=== PATIENT | male | born 1955 | race Caucasian/White ===

== ENCOUNTER 2017-10-15 13:59 | Inpatient (IN) | payer SELFPAY ==
[2017-10-15 15:23] LABS: #Basophils 0.1 thou/uL (0.0-0.2); #Eosinphils 0.6 thou/uL (0.0-0.7); #Lymphocytes 3.5 thou/uL (1.20-3.40); #Monocytes 1.2 thou/uL (0.11-0.59); %Basophils 1.3 % (0.0-1.0); %Eosinophils 6.6 % (0.0-10.0); %Lymphocytes 36.8 % (21.0-51.0); %Monocytes 12.8 % (0.0-10.0); %Neutrophils 42.5 % (42.0-75.0); Hemoglobin 16.3 g/dL (14.0-18.0); Mean Corpuscular HGB CONC 35.7 g/dL (32.0-36.0); Mean Corpuscular Hemoglobin 33.5 pg (27.0-31.0); Mean Corpuscular Volume 93.8 fL (78.0-98.0); Mean Platelet Volume 10.3 fL (7.4-10.4); Platelet Count 140 thou/uL (130-400); RBC Distribution Width 12.8 % (11.5-14.5); Red Blood Cell (RBC) Count 4.87 mill/uL (4.70-6.10); White Blood Cell (WBC) Count 9.4 thou/uL (4.8-10.8)
[2017-10-15 15:44] LABS: ALT (SGPT) 36 U/L (8-55); AST (SGOT) 45 U/L (5-34); Albumin 4.3 g/dL (3.5-5.0); Alkaline Phosphatase 67 U/L (40-150); Anion Gap 13 mmol/L (10-20); BUN (Urea Nitrogen) 17 mg/dL (8.4-25.7); Bilirubin, Total 0.6 mg/dL (0.2-1.2); Calc. Creatinine Clearance 0 mL/min (70-130); Calcium 9.5 mg/dL (7.8-10.44); Carbon Dioxide 23 mmol/L (22-29); Chloride 105 mmol/L (98-107); Estimated GFR-MDRD 65; Globulin 3.5 g/dL (2.4-3.5); Glucose 139 mg/dL (70-105); Potassium 5.4 mmol/L (3.5-5.1); Protein, Total 7.8 g/dL (6.0-8.3); Sodium 136 mmol/L (136-145)
--- NOTE | 2017-10-15 16:00 | RAD ---
THREE VIEWS LEFT SHOULDER: Comparison: None. History: Left shoulder pain. FINDINGS: Three views of the left shoulder shows no evidence of acute fracture or dislocation. No degenerative changes are seen. The visualized left thorax is unremarkable. IMPRESSION: No evidence of acute osseous abnormality. POS: VICENTE
--- NOTE | 2017-10-15 16:06 | RAD ---
THREE VIEWS LUMBOSACRAL SPINE: 10/15/17 COMPARISON: None. HISTORY: Low back pain. FINDINGS: Three views of the lumbosacral spine shows normal height and alignment of the vertebral bodies withou t fracture or subluxation. There are small osteophytes throughout the lumbar spine. Moderate posterio r facet arthrosis is seen in the lower lumbosacral spine. IMPRESSION: Moderate degenerative changes of the lumbar spine without acute osseous abnormality. POS: DAVIN
--- NOTE | 2017-10-15 16:14 | RAD ---
THREE VIEWS LEFT FOOT: Comparison: None. History: Left foot pain. FINDINGS: Three views of the left foot shows no evidence of acute fracture or dislocation. There is moderate hy pertrophy of the first metatarsal head with hallux valgus deformity of the great toe. There is possib le remodeling of the distal aspect of the proximal phalanx of the great toe which could represent a r emote healed fracture. IMPRESSION: Degenerative changes of the left foot without acute osseous abnormality. POS: DAVIN
[2017-10-15] MEDS ORDERED: Piperacillin/Tazobactam 3.375 GM VIAL ONE (16:55)
[2017-10-15] MEDS ORDERED: Mag-Al 1200 mg/1200 mg/30 ML UDCUP PO PRN (16:56)
[2017-10-15] MEDS ORDERED: traMADol HCl 50 MG TAB PO PRN (16:56)
[2017-10-15] MEDS ORDERED: Ondansetron HCl/PF 4 MG/2 ML Vial IVP PRN ×2 (16:56)
[2017-10-15] MEDS ORDERED: cloNIDine 0.1 MG TAB PO PRN (16:56)
[2017-10-15] MEDS ORDERED: hydrALAZINE 20 MG/ML VIAL SLOW IVP PRN (16:56)
[2017-10-15] MEDS ORDERED: Lorazepam 1 MG TAB PO PRN (16:56)
[2017-10-15] MEDS ORDERED: Calcium Carbonate 500 MG ChewTAB PO PRN (16:56)
[2017-10-15] MEDS ORDERED: HYDROcodone/Acetaminophen 5/325 mg Tablet PO PRN (16:56)
[2017-10-15] MEDS ORDERED: Bisacodyl 5 MG TAB PO PRN (16:56)
[2017-10-15] MEDS ORDERED: Diabetic Tussin 200 MG/10 ML UDCUP PO PRN (16:56)
[2017-10-15] MEDS ORDERED: Loratadine 10 MG TAB PO PRN (16:56)
[2017-10-15] MEDS ORDERED: Acetaminophen 325 MG TAB PO PRN (16:56)
[2017-10-15] MEDS ORDERED: Benzonatate 100 MG CAP PO PRN (16:56)
[2017-10-15] MEDS ORDERED: Senokot 8.6 MG TAB PO PRN (16:56)
[2017-10-15] MEDS ORDERED: Dextrose 50% Abboject 50 ML SYRINGE SLOW IVP PRN (16:57)
[2017-10-15] MEDS ORDERED: Piperacillin/Tazobactam 4.5 GM VIAL ONE (16:57)
[2017-10-15] MEDS ORDERED: HumaLOG 300 UNITS/3 ML VIAL SC PRN ×2 (16:57)
[2017-10-15] MEDS ORDERED: Dextrose 5% in Water 1,000 ML IV PRN (16:57)
[2017-10-15] MEDS ORDERED: Vancomycin HCl 1.5 GM in Sodium Chloride 0.9% 250 ML 300 ML IVPB ONE (17:00)
[2017-10-15] MEDS ORDERED: HYDROcodone/Acetaminophen 7.5/325 mg Tablet ONE (17:58)
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
[2017-10-15 20:54] VITALS: BMI 37.3
[2017-10-15] MEDS ORDERED: Vancomycin HCl 1 GM in Premix Bag 1 BAG IVPB SCH (21:00)
[2017-10-15] MEDS: Piperacillin/Tazobactam 3.375 GM in Sodium Chloride 0.9% 100 ML IVPB SCH (21:40)
[2017-10-15] MEDS: Famotidine 20 MG TAB PO SCH (21:46)
[2017-10-15] MEDS: Sodium Chloride 0.9% 1,000 ML IV SCH (21:46)
[2017-10-16] MEDS: Piperacillin/Tazobactam 3.375 GM in Sodium Chloride 0.9% 100 ML IVPB SCH ×4 (01:07→18:01)
[2017-10-16] MEDS: HYDROcodone/Acetaminophen 5/325 mg Tablet PO PRN ×3 (01:09→15:32)
[2017-10-16 05:31] LABS: #Basophils 0.1 thou/uL (0.0-0.2); #Eosinphils 0.7 thou/uL (0.0-0.7); #Lymphocytes 3.1 thou/uL (1.20-3.40); #Neutrophils 2.3 thou/uL (1.40-6.50); %Basophils 1.7 % (0.0-1.0); %Eosinophils 10.2 % (0.0-10.0); %Neutrophils 31.2 % (42.0-75.0); Hemoglobin 14.8 g/dL (14.0-18.0); Mean Corpuscular HGB CONC 33.5 g/dL (32.0-36.0); Mean Corpuscular Hemoglobin 32.4 pg (27.0-31.0); Mean Corpuscular Volume 96.7 fL (78.0-98.0); Mean Platelet Volume 9.5 fL (7.4-10.4); Platelet Count 153 thou/uL (130-400); RBC Distribution Width 12.5 % (11.5-14.5); Red Blood Cell (RBC) Count 4.56 mill/uL (4.70-6.10); White Blood Cell (WBC) Count 7.2 thou/uL (4.8-10.8)
[2017-10-16 05:55] LABS: Anion Gap 12 mmol/L (10-20); BUN (Urea Nitrogen) 17 mg/dL (8.4-25.7); Calc. Creatinine Clearance 125 mL/min (70-130); Calcium 9.3 mg/dL (7.8-10.44); Carbon Dioxide 25 mmol/L (22-29); Chloride 106 mmol/L (98-107); Estimated GFR-MDRD 80; Glucose 119 mg/dL (70-105); Potassium 4.2 mmol/L (3.5-5.1); Sodium 139 mmol/L (136-145)
[2017-10-16] MEDS: Vancomycin HCl 1.5 GM in Sodium Chloride 0.9% 250 ML 300 ML IVPB SCH ×2 (06:23→18:53)
[2017-10-16] MEDS: Sodium Chloride 0.9% 1,000 ML IV SCH (06:25)
[2017-10-16] MEDS: Famotidine 20 MG TAB PO SCH ×2 (08:33→19:56)
[2017-10-16] MEDS: Enoxaparin Sodium 40 MG/0.4 ML SYRINGE SC SCH (08:34)
[2017-10-16] MEDS ORDERED: Colchicine 0.6 MG TAB PO SCH (12:15)
[2017-10-16] MEDS ORDERED: Allopurinol 300 MG TAB PO SCH (12:15)
[2017-10-16] MEDS ORDERED: Saccharomyces boulardii 250 MG CAP PO SCH (12:15)
--- NOTE | 2017-10-16 15:18 | PDOC.PN ---
- Subjective Encounter Start Date: 10/16/17 Encounter Start Time: 15:16 Subjective: feels better. reports that he has not been seen by wound care yet -: no fever/chills. - Objective MAR Reviewed: Yes Vital Signs & Weight: Vital Signs (12 hours) Temp Pulse Resp BP Pulse Ox 10/16/17 12:02 96.9 F L 62 14 121/76 96 10/16/17 11:29 97.0 F L 62 14 121/76 96 10/16/17 08:44 97.7 F 60 14 96 10/16/17 08:42 97.7 F 14 118/79 96 10/16/17 08:00 97.7 F 57 L 14 118/79 96 10/16/17 05:33 97.7 F 58 L 18 124/82 94 L Weight Admit Weight 238 lb Weight 238 lb Result Diagrams: 10/16/17 04:39 10/16/17 04:39 Additional Labs: Accuchecks 10/16/17 10/16/17 10/15/17 11:23 05:36 20:25 POC Glucose 114 H 114 H 141 H Phys Exam - Physical Examination Constitutional: NAD HEENT: PERRLA, moist MMs, sclera anicteric, oral pharynx no lesions Neck: no nodes, no JVD, supple, full ROM Respiratory: no wheezing, no rales, no rhonchi, clear to auscultation bilateral Cardiovascular: RRR, no significant murmur, no rub Gastrointestinal: soft, non-tender, no distention, positive bowel sounds Musculoskeletal: no edema, pulses present R great toe erythema better Neurological: non-focal, normal sensation, moves all 4 limbs Psychiatric: normal affect, A&O x 3 Skin: no rash Dx/Plan (1) Cellulitis of toe, right Code(s): L03.031 - CELLULITIS OF RIGHT TOE Status: Acute (2) DM2 (diabetes mellitus, type 2) Status: Chronic (3) Gout Code(s): M10.9 - GOUT, UNSPECIFIED Status: Chronic (4) Hypothyroid Code(s): E03.9 - HYPOTHYROIDISM, UNSPECIFIED Status: Chronic - Plan continue antibiotics, out of bed/ambulate, DVT proph w/SCDs clinically better. cont empiric ABx -: wound care -: am labs. -: restart home meds -: add probiotics.HD stable * . Review of Systems - Review of Systems Constitutional: negative: fever, chills, sweats, weakness, malaise, other ENT: negative: Ear Pain, Ear Discharge, Nose Pain, Nose Discharge, Nose Congestion, Mouth Pain, Mouth Swelling, Throat Pain, Throat Swelling, Other Respiratory: negative: Cough, Dry, Shortness of Breath, Hemoptysis, SOB with Excertion, Pleuritic Pain, Sputum, Wheezing Cardiovascular: negative: chest pain, palpitations, orthopnea, paroxysmal nocturnal dyspnea, edema, light headedness, other Gastrointestinal: negative: Nausea, Vomiting, Abdominal Pain, Diarrhea, Constipation, Melena, Hematochezia, Other Genitourinary: negative: Dysuria, Frequency, Incontinence, Hematuria, Retention , Other Musculoskeletal: negative: Neck Pain, Shoulder Pain, Arm Pain, Back Pain, Hand Pain, Leg Pain, Foot Pain, Other Neurological: negative: Weakness, Numbness, Incoordination, Change in Speech, Confusion, Seizures, Other - Medications/Allergies Allergies/Adverse Reactions: Allergies Allergy/AdvReac Type Severity Reaction Status Date / Time No Known Allergies Allergy Verified 10/16/17 01:28 Medications: Current Medications Acetaminophen (Tylenol) 650 mg PO Q4H PRN PRN Reason: Headache/Fever or Pain Hydrocodone Bitart/Acetaminophen ([place] 5/325) 1 tab PO Q4H PRN PRN Reason: Moderate Pain (4-6) Hydrocodone Bitart/Acetaminophen ([place] 5/325) 2 tab PO Q4H PRN PRN Reason: Severe Pain (7-10) Last Admin: 10/16/17 08:38 Dose: 2 tab Al Hydroxide/Mg Hydroxide (Maalox) 30 ml PO Q6H PRN PRN Reason: Heartburn or Indigestion Allopurinol (Zyloprim) 300 mg PO DAILY [facility] Benzonatate (Tessalon) 100 mg PO Q4H PRN PRN Reason: Cough Bisacodyl (Dulcolax) 10 mg PO DAILYPRN PRN PRN Reason: Constipation Calcium Carbonate (Tums) 1,000 mg PO Q4H PRN PRN Reason: Heartburn or Indigestion Clonidine (Catapres) 0.1 mg PO Q4H PRN PRN Reason: Systolic BP > 160 Colchicine (Colcrys) 0.6 mg PO DAILY [facility] Dextrose/Water (Dextrose 50%) 25 gm SLOW IVP PRN PRN PRN Reason: Hypoglycemia Enoxaparin Sodium (Lovenox) 40 mg SC 0900 [facility] Last Admin: 10/16/17 08:34 Dose: 40 mg Famotidine (Pepcid) 20 mg PO BID [facility] Last Admin: 10/16/17 08:33 Dose: 20 mg Glucagon (Glucagon) 1 mg IM PRN PRN PRN Reason: Hypoglycemia Guaifenesin (Robitussin Sf) 200 mg PO Q4H PRN PRN Reason: Cough Hydralazine HCl (Apresoline) 10 mg SLOW IVP Q4H PRN PRN Reason: Systolic BP > 170 Dextrose/Water (D5w) 1,000 mls @ 0 mls/hr IV .Q0M PRN; As Directed PRN Reason: Hypoglycemia Sodium Chloride (Normal Saline 0.9%) 1,000 mls @ 75 mls/hr IV .[id number] [facility] Last Admin: 10/16/17 06:25 Dose: Not Given Piperacillin Sod/Tazobactam (Sod 3.375 gm/ Sodium Chloride) 100 mls @ 200 mls/ hr IVPB Q6HR [facility] Last Admin: 10/16/17 11:43 Dose: 100 mls Vancomycin HCl 1.5 gm/ Sodium (Chloride) 300 mls @ 200 mls/hr IVPB 0600,1800 [facility] Last Admin: 10/16/17 06:23 Dose: 300 mls Insulin Human Lispro (Humalog) 0 units SC .MODERATE SLIDING SC PRN PRN Reason: Moderate Correctional Scale Insulin Human Lispro (Humalog) 0 units SC .BEDTIME SLIDING SC PRN PRN Reason: Bedtime Correctional Scale Loratadine (Claritin) 10 mg PO DAILYPRN PRN PRN Reason: Sinus Symptoms Lorazepam (Ativan) 1 mg PO Q4H PRN PRN Reason: Anxiety/Agitation Miscellaneous Medication (Pharmacy To Dose) 1 each IVPB PRN PRN PRN Reason: SSSI Ondansetron HCl (Zofran) 4 mg IVP Q6H PRN PRN Reason: Nausea/Vomiting Saccharomyces Boulardii (Florastor) 250 mg PO DAILY [facility] Senna (Senokot) 2 tab PO HSPRN PRN PRN Reason: Constipation Tramadol HCl (Ultram) 50 mg PO Q4H PRN PRN Reason: Moderate Pain (4-6)
[2017-10-17] MEDS: Piperacillin/Tazobactam 3.375 GM in Sodium Chloride 0.9% 100 ML IVPB SCH ×5 (00:25→23:34)
[2017-10-17] MEDS: Vancomycin HCl 1.5 GM in Sodium Chloride 0.9% 250 ML 300 ML IVPB SCH (05:05)
[2017-10-17 05:33] LABS: Vancomycin, Trough 20.6 ug/mL
[2017-10-17] MEDS ORDERED: Allopurinol 300 MG TAB PO SCH (09:00)
[2017-10-17] MEDS: Saccharomyces boulardii 250 MG CAP PO SCH (09:22)
[2017-10-17] MEDS: Colchicine 0.6 MG TAB PO SCH (09:23)
[2017-10-17] MEDS: Enoxaparin Sodium 40 MG/0.4 ML SYRINGE SC SCH (09:23)
[2017-10-17] MEDS: Famotidine 20 MG TAB PO SCH ×2 (09:27→20:06)
[2017-10-17] MEDS: HYDROcodone/Acetaminophen 5/325 mg Tablet PO PRN ×2 (09:29→17:13)
[2017-10-17] MEDS ORDERED: Atorvastatin Calcium 20 MG TAB PO SCH (12:00)
[2017-10-17] MEDS ORDERED: Levothyroxine 175 MCG TAB PO SCH (12:00)
[2017-10-17] MEDS ORDERED: Gemfibrozil 600 MG TAB PO SCH (12:15)
--- NOTE | 2017-10-17 13:37 | PDOC.PN ---
- Subjective Encounter Start Date: 10/17/17 Encounter Start Time: 13:35 Subjective: feels better. no more fever/chills -: feels the great toe swelling is worse - Objective MAR Reviewed: Yes Vital Signs & Weight: Vital Signs (12 hours) Temp Pulse Resp BP Pulse Ox 10/17/17 09:36 98.2 F 65 18 95 10/17/17 08:24 97.8 F 63 18 121/81 95 10/17/17 07:15 98.2 F 63 18 121/81 95 Weight Admit Weight 238 lb Weight 238 lb I&O: 10/16/17 10/17/17 10/18/17 06:59 06:59 06:59 Intake Total 2580 Balance 2580 Result Diagrams: 10/16/17 04:39 10/16/17 04:39 Additional Labs: Accuchecks 10/17/17 10/17/17 10/16/17 11:45 05:21 19:58 POC Glucose 151 H 106 113 H 10/16/17 16:22 POC Glucose 117 H labs reviewed Phys Exam - Physical Examination Constitutional: NAD HEENT: PERRLA, moist MMs, sclera anicteric, oral pharynx no lesions Neck: no nodes, no JVD, supple, full ROM Respiratory: no wheezing, no rales, no rhonchi, clear to auscultation bilateral Cardiovascular: RRR, no significant murmur Gastrointestinal: soft, non-tender, no distention, positive bowel sounds Musculoskeletal: pulses present Left great toe swelling,erythema,blisters opened up by WC Neurological: non-focal, normal sensation, moves all 4 limbs Psychiatric: normal affect, A&O x 3 Skin: no rash Dx/Plan (1) Cellulitis of toe, right Code(s): L03.031 - CELLULITIS OF RIGHT TOE Status: Acute (2) DM2 (diabetes mellitus, type 2) Status: Chronic (3) Gout Code(s): M10.9 - GOUT, UNSPECIFIED Status: Chronic (4) Hypothyroid Code(s): E03.9 - HYPOTHYROIDISM, UNSPECIFIED Status: Chronic (5) HLD (hyperlipidemia) Code(s): E78.5 - HYPERLIPIDEMIA, UNSPECIFIED Status: Acute - Plan continue antibiotics, out of bed/ambulate, DVT proph w/SCDs home meds reconcilef.will restart except metformin.ISS,accuchecks -: discussed w [facility] Dr. wright-no site that needs surgical intervention-Agree -: cont empiric ABx and monitor clinical improvement -: Pt educated about need for Podiatry referrral as an OP -: am labs.HD stable.likley need 2 more days of IV ABx * . Review of Systems - Review of Systems Constitutional: negative: fever, chills, sweats, weakness, malaise, other Respiratory: negative: Cough, Dry, Shortness of Breath, Hemoptysis, SOB with Excertion, Pleuritic Pain, Sputum, Wheezing Cardiovascular: negative: chest pain, palpitations, orthopnea, paroxysmal nocturnal dyspnea, edema, light headedness, other Gastrointestinal: negative: Nausea, Vomiting, Abdominal Pain, Diarrhea, Constipation, Melena, Hematochezia, Other Genitourinary: negative: Dysuria, Frequency, Incontinence, Hematuria, Retention , Other Musculoskeletal: negative: Neck Pain, Shoulder Pain, Arm Pain, Back Pain, Hand Pain, Leg Pain, Foot Pain, Other Skin: negative: Rash, Lesions, Gucci, Bruising, Other Neurological: negative: Weakness, Numbness, Incoordination, Change in Speech, Confusion, Seizures, Other - Medications/Allergies Allergies/Adverse Reactions: Allergies Allergy/AdvReac Type Severity Reaction Status Date / Time No Known Allergies Allergy Verified 10/16/17 01:28 Medications: Current Medications Acetaminophen (Tylenol) 650 mg PO Q4H PRN PRN Reason: Headache/Fever or Pain Hydrocodone Bitart/Acetaminophen ([place] 5/325) 1 tab PO Q4H PRN PRN Reason: Moderate Pain (4-6) Hydrocodone Bitart/Acetaminophen ([place] 5/325) 2 tab PO Q4H PRN PRN Reason: Severe Pain (7-10) Last Admin: 10/17/17 09:29 Dose: 2 tab Al Hydroxide/Mg Hydroxide (Maalox) 30 ml PO Q6H PRN PRN Reason: Heartburn or Indigestion Allopurinol (Zyloprim) 300 mg PO DAILY [facility] Anastrozole (Arimidex) 1 mg PO DAILY [facility] Atorvastatin Calcium (Lipitor) 20 mg PO DAILY [facility] Atorvastatin Calcium (Lipitor) 20 mg PO NOW [facility] Stop: 10/17/17 14:00 Last Admin: 10/17/17 12:43 Dose: 20 mg Benzonatate (Tessalon) 100 mg PO Q4H PRN PRN Reason: Cough Bisacodyl (Dulcolax) 10 mg PO DAILYPRN PRN PRN Reason: Constipation Calcium Carbonate (Tums) 1,000 mg PO Q4H PRN PRN Reason: Heartburn or Indigestion Clonidine (Catapres) 0.1 mg PO Q4H PRN PRN Reason: Systolic BP > 160 Colchicine (Colcrys) 0.6 mg PO DAILY [facility] Last Admin: 10/17/17 09:23 Dose: 0.6 mg Dextrose/Water (Dextrose 50%) 25 gm SLOW IVP PRN PRN PRN Reason: Hypoglycemia Enoxaparin Sodium (Lovenox) 40 mg SC 0900 [facility] Last Admin: 10/17/17 09:23 Dose: 40 mg Famotidine (Pepcid) 20 mg PO BID [facility] Last Admin: 10/17/17 09:27 Dose: 20 mg Gabapentin (Neurontin) 100 mg PO TID [facility] Gemfibrozil (Lopid) 600 mg PO DAILY-AC [facility] Gemfibrozil (Lopid) 600 mg PO NOW [facility] Stop: 10/17/17 14:15 Last Admin: 10/17/17 12:43 Dose: 600 mg Glucagon (Glucagon) 1 mg IM PRN PRN PRN Reason: Hypoglycemia Guaifenesin (Robitussin Sf) 200 mg PO Q4H PRN PRN Reason: Cough Hydralazine HCl (Apresoline) 10 mg SLOW IVP Q4H PRN PRN Reason: Systolic BP > 170 Dextrose/Water (D5w) 1,000 mls @ 0 mls/hr IV .Q0M PRN; As Directed PRN Reason: Hypoglycemia Piperacillin Sod/Tazobactam (Sod 3.375 gm/ Sodium Chloride) 100 mls @ 200 mls/ hr IVPB Q6HR [facility] Last Admin: 10/17/17 11:47 Dose: 100 mls Vancomycin HCl 1.25 gm/ Sodium (Chloride) 250 mls @ 166.667 mls/hr IVPB 0600, 1800 [facility] Insulin Human Lispro (Humalog) 0 units SC .MODERATE SLIDING SC PRN PRN Reason: Moderate Correctional Scale Insulin Human Lispro (Humalog) 0 units SC .BEDTIME SLIDING SC PRN PRN Reason: Bedtime Correctional Scale Levothyroxine Sodium (Synthroid) 175 mcg PO DAILY-AC [facility] Levothyroxine Sodium (Synthroid) 175 mcg PO NOW [facility] Stop: 10/17/17 14:00 Loratadine (Claritin) 10 mg PO DAILYPRN PRN PRN Reason: Sinus Symptoms Lorazepam (Ativan) 1 mg PO Q4H PRN PRN Reason: Anxiety/Agitation Miscellaneous Medication (Pharmacy To Dose) 1 each IVPB PRN PRN PRN Reason: SSSI (Empagliflozin/Linagliptin [ Glyxambi 25 Mg-5 Mg Tablet] 1 Each) 1 each PO DAILY [facility] (Glucosamine/D3/Boswellia Aleksandra [ Osteo Bi-Flex Tablet ] 2 Each) 2 each PO DAILY [facility] Ondansetron HCl (Zofran) 4 mg IVP Q6H PRN PRN Reason: Nausea/Vomiting Saccharomyces Boulardii (Florastor) 250 mg PO DAILY [facility] Last Admin: 10/17/17 09:22 Dose: 250 mg Senna (Senokot) 2 tab PO HSPRN PRN PRN Reason: Constipation Tramadol HCl (Ultram) 50 mg PO Q4H PRN PRN Reason: Moderate Pain (4-6)
[2017-10-17] MEDS: Gabapentin 100 MG CAP PO SCH ×2 (13:41→20:06)
[2017-10-17] MEDS: Anastrozole 1 MG TAB PO SCH (13:41)
[2017-10-17] MEDS: Vancomycin HCl 1.25 GM in Sodium Chloride 0.9% 250 ML 250 ML IVPB SCH (18:04)
--- NOTE | 2017-10-17 18:59 | PDOC.GSCN ---
Surgery Consult: HPI - Consult details Date: 10/17/17 Time: 12:00 History of present illness: 10/17/17 18:57 Patient admitted for cellulitis of the left great toe after injuring it the previous night. The patient was wearing how shoes and stubbed his toe on some furniture and fell. He was having pain in his shoulder and back but wasn't having any pain in his foot due to fairly dense neuropathy. When he went to bed and took his shoe off it was dark so he didn't see anything wrong with his toe that when his was helping and put on his socks the next morning she noticed that his toe is very swollen and had large blisters on it. He came into the emergency room to be evaluated and he was admitted for suspected cellulitis due to to some redness of the toe. He has not had any fevers or chills. He has had some serosanguineous drainage from the blisters when they popped but no purulent drainage. Past surgical history of appendectomy and hernia repair. He does not smoke drink or use illicit drugs. Review of systems negative except per history of present illness and shoulder and back pain from his fall. Family history is noncontributory. 10/17/17 19:09 Surgery Consult: Exam - Vital signs Vital signs: Vital Signs - Most Recent Temp Pulse Resp BP Pulse Ox 97.9 F 65 14 106/66 95 10/17/17 14:47 10/17/17 14:47 10/17/17 14:47 10/17/17 14:47 10/17/17 14:47 - Physical Exam General: no distress, well nourished ENT: no congestion, no hearing loss, normal mucosa, normal nares, normal pinna Neck: no bruits, no lymphadectomy, no masses, no laura distention, trachea midline Respiratory: clear to auscultation, clear to percussion, normal expansion, normal respiratory effort Abdomen: non tender, soft Hernia: none Neurologic: other (Diminished sensation to light touch) Psychiatric: memory intact, oriented to time, oriented to person, oriented to place, speech is normal Additional exam: Left great toe is minimally swollen compared to the right. The dorsal blisters have drained but the underlying dermis appears healthy. There is no intact blister between the first and second toes which was not drained. Joint movement is normal although he has a valgus deformity. He does have hammertoe deformities of his second through fourth toes as well. Minimal erythema of the toe which may be traumatic in nature Surgery Consult: Meds - Medications Medications: Current Medications Acetaminophen (Tylenol) 650 mg PO Q4H PRN PRN Reason: Headache/Fever or Pain Hydrocodone Bitart/Acetaminophen ([place] 5/325) 1 tab PO Q4H PRN PRN Reason: Moderate Pain (4-6) Hydrocodone Bitart/Acetaminophen ([place] 5/325) 2 tab PO Q4H PRN PRN Reason: Severe Pain (7-10) Last Admin: 10/17/17 17:13 Dose: 2 tab Al Hydroxide/Mg Hydroxide (Maalox) 30 ml PO Q6H PRN PRN Reason: Heartburn or Indigestion Allopurinol (Zyloprim) 300 mg PO DAILY [facility] Anastrozole (Arimidex) 1 mg PO DAILY [facility] Last Admin: 10/17/17 13:41 Dose: Not Given Atorvastatin Calcium (Lipitor) 20 mg PO DAILY [facility] Benzonatate (Tessalon) 100 mg PO Q4H PRN PRN Reason: Cough Bisacodyl (Dulcolax) 10 mg PO DAILYPRN PRN PRN Reason: Constipation Calcium Carbonate (Tums) 1,000 mg PO Q4H PRN PRN Reason: Heartburn or Indigestion Clonidine (Catapres) 0.1 mg PO Q4H PRN PRN Reason: Systolic BP > 160 Colchicine (Colcrys) 0.6 mg PO DAILY [facility] Last Admin: 10/17/17 09:23 Dose: 0.6 mg Dextrose/Water (Dextrose 50%) 25 gm SLOW IVP PRN PRN PRN Reason: Hypoglycemia Enoxaparin Sodium (Lovenox) 40 mg SC 0900 [facility] Last Admin: 10/17/17 09:23 Dose: 40 mg Famotidine (Pepcid) 20 mg PO BID [facility] Last Admin: 10/17/17 09:27 Dose: 20 mg Gabapentin (Neurontin) 100 mg PO TID [facility] Last Admin: 10/17/17 13:41 Dose: 100 mg Gemfibrozil (Lopid) 600 mg PO DAILY-[facility] Glucagon (Glucagon) 1 mg IM PRN PRN PRN Reason: Hypoglycemia Guaifenesin (Robitussin Sf) 200 mg PO Q4H PRN PRN Reason: Cough Hydralazine HCl (Apresoline) 10 mg SLOW IVP Q4H PRN PRN Reason: Systolic BP > 170 Dextrose/Water (D5w) 1,000 mls @ 0 mls/hr IV .Q0M PRN; As Directed PRN Reason: Hypoglycemia Piperacillin Sod/Tazobactam (Sod 3.375 gm/ Sodium Chloride) 100 mls @ 200 mls/ hr IVPB Q6HR [facility] Last Admin: 10/17/17 17:03 Dose: 100 mls Vancomycin HCl 1.25 gm/ Sodium (Chloride) 250 mls @ 166.667 mls/hr IVPB 0600, 1800 [facility] Last Admin: 10/17/17 18:04 Dose: 250 mls Insulin Human Lispro (Humalog) 0 units SC .MODERATE SLIDING SC PRN PRN Reason: Moderate Correctional Scale Insulin Human Lispro (Humalog) 0 units SC .BEDTIME SLIDING SC PRN PRN Reason: Bedtime Correctional Scale Levothyroxine Sodium (Synthroid) 175 mcg PO DAILY-[facility] Loratadine (Claritin) 10 mg PO DAILYPRN PRN PRN Reason: Sinus Symptoms Lorazepam (Ativan) 1 mg PO Q4H PRN PRN Reason: Anxiety/Agitation Miscellaneous Medication (Pharmacy To Dose) 1 each IVPB PRN PRN PRN Reason: SSSI (Empagliflozin/Linagliptin [ Glyxambi 25 Mg-5 Mg Tablet] 1 Each) 1 each PO DAILY [facility] (Glucosamine/D3/Boswellia Aleksandra [ Osteo Bi-Flex Tablet ] 2 Each) 2 each PO DAILY [facility] Ondansetron HCl (Zofran) 4 mg IVP Q6H PRN PRN Reason: Nausea/Vomiting Saccharomyces Boulardii (Florastor) 250 mg PO DAILY [facility] Last Admin: 10/17/17 09:22 Dose: 250 mg Senna (Senokot) 2 tab PO HSPRN PRN PRN Reason: Constipation Tramadol HCl (Ultram) 50 mg PO Q4H PRN PRN Reason: Moderate Pain (4-6) - Allergies Allergies/Adverse Reactions: Allergies Allergy/AdvReac Type Severity Reaction Status Date / Time No Known Allergies Allergy Verified 10/16/17 01:28 Surgery Consult: Results - Labs Result Diagrams: 10/16/17 04:39 10/16/17 04:39 Lab results: Laboratory Results WBC 7.2 thou/uL (4.8-10.8) 10/16/17 04:39 RBC 4.56 mill/uL (4.70-6.10) L 10/16/17 04:39 Hgb 14.8 g/dL (14.0-18.0) 10/16/17 04:39 Hct 44.0 % (42.0-52.0) 10/16/17 04:39 MCV 96.7 fL (78.0-98.0) 10/16/17 04:39 MCH 32.4 pg (27.0-31.0) H 10/16/17 04:39 MCHC 33.5 g/dL (32.0-36.0) 10/16/17 04:39 RDW 12.5 % (11.5-14.5) 10/16/17 04:39 Plt Count 153 thou/uL (130-400) 10/16/17 04:39 MPV 9.5 fL (7.4-10.4) 10/16/17 04:39 Neutrophils % 31.2 % (42.0-75.0) L 10/16/17 04:39 Lymphocytes % 43.0 % (21.0-51.0) 10/16/17 04:39 Monocytes % 14.0 % (0.0-10.0) H 10/16/17 04:39 Eosinophils % 10.2 % (0.0-10.0) H 10/16/17 04:39 Basophils % 1.7 % (0.0-1.0) H 10/16/17 04:39 Neutrophils # 2.3 thou/uL (1.40-6.50) 10/16/17 04:39 Lymphocytes # 3.1 thou/uL (1.20-3.40) 10/16/17 04:39 Monocytes # 1.0 thou/uL (0.11-0.59) H 10/16/17 04:39 Eosinophils # 0.7 thou/uL (0.0-0.7) 10/16/17 04:39 Basophils # 0.1 thou/uL (0.0-0.2) 10/16/17 04:39 ESR Westergren 10 mm/hr (Less than 20) 10/15/17 15:10 Sodium 139 mmol/L (136-145) 10/16/17 04:39 Potassium 4.2 mmol/L (3.5-5.1) 10/16/17 04:39 Chloride 106 mmol/L (98-107) 10/16/17 04:39 Carbon Dioxide 25 mmol/L (22-29) 10/16/17 04:39 Anion Gap 12 mmol/L (10-20) 10/16/17 04:39 BUN 17 mg/dL (8.4-25.7) 10/16/17 04:39 Creatinine 0.96 mg/dL (0.6-1.3) 10/16/17 04:39 Estimated GFR (MDRD) 80 10/16/17 04:39 Glucose 119 mg/dL (70-105) H 10/16/17 04:39 POC Glucose 147 mg/dL (70-110) H 10/17/17 16:48 Lactic Acid 1.9 mmol/L (0.5-2.2) 10/15/17 15:10 Calcium 9.3 mg/dL (7.8-10.44) 10/16/17 04:39 Total Bilirubin 0.6 mg/dL (0.2-1.2) 10/15/17 15:10 AST 45 U/L (5-34) H 10/15/17 15:10 ALT 36 U/L (8-55) 10/15/17 15:10 Alkaline Phosphatase 67 U/L (40-150) 10/15/17 15:10 C-Reactive Protein 0.80 mg/dL (= or < 0.5) H 10/15/17 15:10 Serum Total Protein 7.8 g/dL (6.0-8.3) 10/15/17 15:10 Albumin 4.3 g/dL (3.5-5.0) 10/15/17 15:10 Globulin 3.5 g/dL (2.4-3.5) 10/15/17 15:10 Albumin/Globulin Ratio 1.2 g/dL (1.2-2.2) 10/15/17 15:10 Vancomycin Trough 20.6 ug/mL 10/17/17 04:49 Assessment/Plan - Assessment/Plan Assessment: Left great toe blisters due to soft tissue injury and swelling. No fracture seen on x-ray. No need for surgical debridement. Plan: Conservative wound management with dressing changes. There is no need for surgical debridement at this time so I will sign off. Please call me if his condition changes. History - Past Medical History Cardiac: reports: Dyslipidemia Endocrine: reports: Diabetes, Hypothyroidism
[2017-10-17] MEDS: Colchicine 0.6 MG TAB PO PRN (21:38)
[2017-10-18 04:53] LABS: #Basophils 0.1 thou/uL (0.0-0.2); #Eosinphils 0.8 thou/uL (0.0-0.7); #Lymphocytes 2.9 thou/uL (1.20-3.40); #Monocytes 0.8 thou/uL (0.11-0.59); #Neutrophils 2.4 thou/uL (1.40-6.50); %Basophils 0.8 % (0.0-1.0); %Eosinophils 11.8 % (0.0-10.0); %Lymphocytes 41.7 % (21.0-51.0); %Monocytes 11.2 % (0.0-10.0); %Neutrophils 34.5 % (42.0-75.0); Hemoglobin 15.6 g/dL (14.0-18.0); Mean Corpuscular HGB CONC 33.9 g/dL (32.0-36.0); Mean Corpuscular Volume 94.1 fL (78.0-98.0); Platelet Count 174 thou/uL (130-400); RBC Distribution Width 12.3 % (11.5-14.5); White Blood Cell (WBC) Count 6.9 thou/uL (4.8-10.8)
[2017-10-18] MEDS: Piperacillin/Tazobactam 3.375 GM in Sodium Chloride 0.9% 100 ML IVPB SCH ×3 (05:21→17:22)
[2017-10-18] MEDS: Vancomycin HCl 1.25 GM in Sodium Chloride 0.9% 250 ML 250 ML IVPB SCH ×2 (05:22→17:22)
[2017-10-18 05:25] LABS: Anion Gap 17 mmol/L (10-20); BUN (Urea Nitrogen) 17 mg/dL (8.4-25.7); Calc. Creatinine Clearance 106 mL/min (70-130); Calcium 9.6 mg/dL (7.8-10.44); Carbon Dioxide 22 mmol/L (22-29); Chloride 104 mmol/L (98-107); Estimated GFR-MDRD 66; Glucose 111 mg/dL (70-105); Potassium 4.2 mmol/L (3.5-5.1); Sodium 139 mmol/L (136-145)
[2017-10-18] MEDS: Levothyroxine 175 MCG TAB PO SCH (08:15)
[2017-10-18] MEDS: Gabapentin 100 MG CAP PO SCH ×3 (08:15→19:46)
[2017-10-18] MEDS: Famotidine 20 MG TAB PO SCH ×2 (08:16→19:46)
[2017-10-18] MEDS: Anastrozole 1 MG TAB PO SCH (08:16)
[2017-10-18] MEDS: Allopurinol 300 MG TAB PO SCH (08:17)
[2017-10-18] MEDS: Gemfibrozil 600 MG TAB PO SCH (08:17)
[2017-10-18] MEDS: Saccharomyces boulardii 250 MG CAP PO SCH (08:18)
[2017-10-18] MEDS: Atorvastatin Calcium 20 MG TAB PO SCH (08:18)
[2017-10-18] MEDS: Colchicine 0.6 MG TAB PO SCH (08:19)
[2017-10-18] MEDS: Enoxaparin Sodium 40 MG/0.4 ML SYRINGE SC SCH (08:19)
[2017-10-18] MEDS: HYDROcodone/Acetaminophen 5/325 mg Tablet PO PRN ×2 (08:25→19:46)
[2017-10-18] MEDS ORDERED: D3 PO SCH (09:00)
[2017-10-18] MEDS ORDERED: Colchicine 0.6 MG TAB PO SCH (09:00)
[2017-10-18] MEDS ORDERED: GLUCOSAMINE PO SCH (09:00)
[2017-10-18] MEDS ORDERED: BOSWELLIA SERRA PO SCH (09:00)
--- NOTE | 2017-10-18 15:51 | PDOC.PN ---
- Subjective Encounter Start Date: 10/18/17 Encounter Start Time: 08:40 Pt seen for followup re: cellulitis of left great toe. Denies fevers or chills. No nausea or vomiting. Diarrhea started today. - Objective Vital Signs & Weight: Vital Signs (12 hours) Temp Pulse Resp BP Pulse Ox 10/18/17 08:35 98.4 F 63 20 130/81 95 10/18/17 08:00 98.4 F 63 20 Weight Admit Weight 238 lb Weight 238 lb I&O: 10/17/17 10/18/17 10/19/17 06:59 06:59 06:59 Intake Total 2580 2980 Balance 2580 2980 Result Diagrams: 10/18/17 04:09 10/18/17 04:09 Additional Labs: Accuchecks 10/18/17 10/18/17 10/17/17 11:33 04:29 19:40 POC Glucose 121 H 115 H 121 H 10/17/17 16:48 POC Glucose 147 H Phys Exam - Physical Examination Obese HEENT: moist MMs, sclera anicteric, oral pharynx no lesions, 2+ tonsils Neck: no nodes, no JVD, supple, full ROM Respiratory: no wheezing, no rales, no rhonchi, clear to auscultation bilateral Cardiovascular: RRR, no rub S1, S2 Gastrointestinal: soft, non-tender, positive bowel sounds distention Musculoskeletal: pulses present Neurological: moves all 4 limbs Psychiatric: normal affect, A&O x 3 Deviation from normal: L great toe cellulitis, blisters Dx/Plan (1) Cellulitis of great toe, left Code(s): L03.032 - CELLULITIS OF LEFT TOE Status: Acute Comment: continue IV Zosyn and vancomycin, await cultures and clinical improvement (2) Diarrhea Code(s): R19.7 - DIARRHEA, UNSPECIFIED Status: Acute Comment: r/o C. diff, infectious diarrhea (3) HLD (hyperlipidemia) Code(s): E78.5 - HYPERLIPIDEMIA, UNSPECIFIED Status: Chronic Comment: continue statin (4) DM2 (diabetes mellitus, type 2) Status: Chronic Comment: continue accuchecks, insulin sliding scale (5) Gout Code(s): M10.9 - GOUT, UNSPECIFIED Status: Chronic Comment: stable, continue allopurinol (6) Hypothyroid Code(s): E03.9 - HYPOTHYROIDISM, UNSPECIFIED Status: Chronic Comment: continue synthroid - Plan * . Review of Systems - Review of Systems Constitutional: negative: fever, chills, sweats, weakness, malaise Cardiovascular: negative: chest pain, palpitations, orthopnea, paroxysmal nocturnal dyspnea, edema, light headedness Gastrointestinal: Diarrhea. negative: Nausea, Vomiting, Abdominal Pain, Constipation, Melena, Hematochezia Genitourinary: negative: Dysuria, Frequency, Incontinence, Hematuria, Retention Musculoskeletal: Other (L freat toe pain). negative: Neck Pain, Shoulder Pain, Arm Pain, Back Pain, Hand Pain, Leg Pain, Foot Pain Skin: Rash. negative: Lesions, Gucci, Bruising - Medications/Allergies Allergies/Adverse Reactions: Allergies Allergy/AdvReac Type Severity Reaction Status Date / Time No Known Allergies Allergy Verified 10/16/17 01:28 Medications: Current Medications Acetaminophen (Tylenol) 650 mg PO Q4H PRN PRN Reason: Headache/Fever or Pain Hydrocodone Bitart/Acetaminophen ([place] 5/325) 1 tab PO Q4H PRN PRN Reason: Moderate Pain (4-6) Last Admin: 10/17/17 23:42 Dose: 1 tab Hydrocodone Bitart/Acetaminophen ([place] 5/325) 2 tab PO Q4H PRN PRN Reason: Severe Pain (7-10) Last Admin: 10/18/17 08:25 Dose: 2 tab Al Hydroxide/Mg Hydroxide (Maalox) 30 ml PO Q6H PRN PRN Reason: Heartburn or Indigestion Allopurinol (Zyloprim) 300 mg PO DAILY [facility] Last Admin: 10/18/17 08:17 Dose: 300 mg Anastrozole (Arimidex) 1 mg PO DAILY [facility] Last Admin: 10/18/17 08:16 Dose: Not Given Atorvastatin Calcium (Lipitor) 20 mg PO DAILY [facility] Last Admin: 10/18/17 08:18 Dose: 20 mg Benzonatate (Tessalon) 100 mg PO Q4H PRN PRN Reason: Cough Bisacodyl (Dulcolax) 10 mg PO DAILYPRN PRN PRN Reason: Constipation Calcium Carbonate (Tums) 1,000 mg PO Q4H PRN PRN Reason: Heartburn or Indigestion Clonidine (Catapres) 0.1 mg PO Q4H PRN PRN Reason: Systolic BP > 160 Colchicine (Colcrys) 0.6 mg PO DAILY [facility] Last Admin: 10/18/17 08:19 Dose: 0.6 mg Colchicine (Colcrys) 0.6 mg PO BIDPRN PRN PRN Reason: GOUT PAIN Last Admin: 10/17/17 21:38 Dose: 0.6 mg Dextrose/Water (Dextrose 50%) 25 gm SLOW IVP PRN PRN PRN Reason: Hypoglycemia Enoxaparin Sodium (Lovenox) 40 mg SC 0900 [facility] Last Admin: 10/18/17 08:19 Dose: 40 mg Famotidine (Pepcid) 20 mg PO BID [facility] Last Admin: 10/18/17 08:16 Dose: 20 mg Gabapentin (Neurontin) 100 mg PO TID [facility] Last Admin: 10/18/17 08:15 Dose: 100 mg Gemfibrozil (Lopid) 600 mg PO DAILY[facility] Last Admin: 10/18/17 08:17 Dose: 600 mg Glucagon (Glucagon) 1 mg IM PRN PRN PRN Reason: Hypoglycemia Guaifenesin (Robitussin Sf) 200 mg PO Q4H PRN PRN Reason: Cough Hydralazine HCl (Apresoline) 10 mg SLOW IVP Q4H PRN PRN Reason: Systolic BP > 170 Dextrose/Water (D5w) 1,000 mls @ 0 mls/hr IV .Q0M PRN; As Directed PRN Reason: Hypoglycemia Piperacillin Sod/Tazobactam (Sod 3.375 gm/ Sodium Chloride) 100 mls @ 200 mls/ hr IVPB Q6HR [facility] Last Admin: 10/18/17 13:36 Dose: 100 mls Vancomycin HCl 1.25 gm/ Sodium (Chloride) 250 mls @ 166.667 mls/hr IVPB 0600, 1800 [facility] Last Admin: 10/18/17 05:22 Dose: 250 mls Insulin Human Lispro (Humalog) 0 units SC .MODERATE SLIDING SC PRN PRN Reason: Moderate Correctional Scale Insulin Human Lispro (Humalog) 0 units SC .BEDTIME SLIDING SC PRN PRN Reason: Bedtime Correctional Scale Levothyroxine Sodium (Synthroid) 175 mcg PO DAILY[facility] Last Admin: 10/18/17 08:15 Dose: 175 mcg Loratadine (Claritin) 10 mg PO DAILYPRN PRN PRN Reason: Sinus Symptoms Lorazepam (Ativan) 1 mg PO Q4H PRN PRN Reason: Anxiety/Agitation Metformin HCl (Glucophage) 500 mg PO BID-[facility] Miscellaneous Medication (Pharmacy To Dose) 1 each IVPB PRN PRN PRN Reason: SSSI (Empagliflozin/Linagliptin [ Glyxambi 25 Mg-5 Mg Tablet] 1 Each) 1 each PO DAILY [facility] Non-Formulary Medication (Prasterone (Dhea) [Dhea 25]) 50 mg PO DAILY [facility] Ondansetron HCl (Zofran) 4 mg IVP Q6H PRN PRN Reason: Nausea/Vomiting Pantoprazole Sodium (Protonix) 40 mg PO DAILY [facility] Saccharomyces Boulardii (Florastor) 250 mg PO DAILY [facility] Last Admin: 10/18/17 08:18 Dose: 250 mg Senna (Senokot) 2 tab PO HSPRN PRN PRN Reason: Constipation Tramadol HCl (Ultram) 50 mg PO Q4H PRN PRN Reason: Moderate Pain (4-6)
[2017-10-18] MEDS: metFORMIN 500 MG TAB PO SCH (16:25)
[2017-10-18] MEDS: Colchicine 0.6 MG TAB PO PRN (19:52)
[2017-10-19] MEDS: Piperacillin/Tazobactam 3.375 GM in Sodium Chloride 0.9% 100 ML IVPB SCH ×5 (00:22→23:23)
[2017-10-19 05:27] LABS: #Basophils 0.1 thou/uL (0.0-0.2); #Eosinphils 0.8 thou/uL (0.0-0.7); #Lymphocytes 2.7 thou/uL (1.20-3.40); #Monocytes 0.9 thou/uL (0.11-0.59); #Neutrophils 3.2 thou/uL (1.40-6.50); %Basophils 1.3 % (0.0-1.0); %Eosinophils 9.8 % (0.0-10.0); %Lymphocytes 35.6 % (21.0-51.0); %Monocytes 11.2 % (0.0-10.0); Hemoglobin 16.3 g/dL (14.0-18.0); Mean Corpuscular HGB CONC 34.4 g/dL (32.0-36.0); Mean Corpuscular Hemoglobin 32.4 pg (27.0-31.0); Mean Corpuscular Volume 94.2 fL (78.0-98.0); Mean Platelet Volume 8.9 fL (7.4-10.4); Platelet Count 182 thou/uL (130-400); RBC Distribution Width 12.2 % (11.5-14.5); Red Blood Cell (RBC) Count 5.03 mill/uL (4.70-6.10); White Blood Cell (WBC) Count 7.7 thou/uL (4.8-10.8)
[2017-10-19 05:40] LABS: Anion Gap 11 mmol/L (10-20); BUN (Urea Nitrogen) 23 mg/dL (8.4-25.7); Calc. Creatinine Clearance 102 mL/min (70-130); Carbon Dioxide 27 mmol/L (22-29); Chloride 103 mmol/L (98-107); Estimated GFR-MDRD 63; Potassium 4.3 mmol/L (3.5-5.1); Sodium 137 mmol/L (136-145)
[2017-10-19 05:41] LABS: Glucose 115 mg/dL (70-105); Vancomycin, Trough 19.4 ug/mL
[2017-10-19] MEDS: Vancomycin HCl 1.25 GM in Sodium Chloride 0.9% 250 ML 250 ML IVPB SCH ×2 (05:44→17:22)
[2017-10-19] MEDS: HYDROcodone/Acetaminophen 5/325 mg Tablet PO PRN ×2 (09:32→17:21)
[2017-10-19] MEDS: Atorvastatin Calcium 20 MG TAB PO SCH (09:34)
[2017-10-19] MEDS: Enoxaparin Sodium 40 MG/0.4 ML SYRINGE SC SCH (09:34)
[2017-10-19] MEDS: Allopurinol 300 MG TAB PO SCH (09:34)
[2017-10-19] MEDS: Anastrozole 1 MG TAB PO SCH (09:34)
[2017-10-19] MEDS: Gemfibrozil 600 MG TAB PO SCH (09:34)
[2017-10-19] MEDS: Colchicine 0.6 MG TAB PO SCH (09:34)
[2017-10-19] MEDS: Famotidine 20 MG TAB PO SCH ×2 (09:34→20:31)
[2017-10-19] MEDS: metFORMIN 500 MG TAB PO SCH ×2 (09:34→17:22)
[2017-10-19] MEDS: Gabapentin 100 MG CAP PO SCH ×3 (09:34→20:31)
[2017-10-19] MEDS: Levothyroxine 175 MCG TAB PO SCH (09:34)
[2017-10-19] MEDS: Saccharomyces boulardii 250 MG CAP PO SCH (09:35)
[2017-10-19] MEDS ORDERED: Loperamide HCl 2 MG CAP PO PRN (09:52)
[2017-10-19] MEDS ORDERED: Loperamide HCl 2 MG CAP PO SCH (11:00)
--- NOTE | 2017-10-19 13:53 | PDOC.PN ---
- Subjective Encounter Start Date: 10/19/17 Encounter Start Time: 08:40 Pt seen for followup re: cellulitis of great toe. Continues to have watery stools, no other complaints. - Objective Vital Signs & Weight: Vital Signs (12 hours) Temp Pulse Resp BP Pulse Ox 10/19/17 08:00 97.6 F 65 22 H 105/69 96 10/19/17 07:23 97.7 F 65 18 Weight Admit Weight 238 lb Weight 238 lb I&O: 10/18/17 10/19/17 10/20/17 06:59 06:59 06:59 Intake Total 2980 4330 Balance 2980 4330 Result Diagrams: 10/19/17 05:05 10/19/17 05:05 Additional Labs: Accuchecks 10/19/17 10/19/17 10/18/17 10:54 04:42 20:57 POC Glucose 128 H 120 H 111 H 10/18/17 16:26 POC Glucose 148 H Phys Exam - Physical Examination Obese HEENT: moist MMs, sclera anicteric, oral pharynx no lesions, 2+ tonsils Neck: no nodes, no JVD, supple, full ROM Respiratory: no wheezing, no rales, no rhonchi, clear to auscultation bilateral Cardiovascular: RRR, no rub S1, S2 Gastrointestinal: soft, non-tender, no distention, positive bowel sounds Neurological: moves all 4 limbs Psychiatric: normal affect, A&O x 3 Deviation from normal: L great toe cellulitis, blisters Dx/Plan (1) Cellulitis of great toe, left Code(s): L03.032 - CELLULITIS OF LEFT TOE Status: Acute Comment: continue IV Zosyn and vancomycin, wound cultures were not sent, send them today (2) Diarrhea Code(s): R19.7 - DIARRHEA, UNSPECIFIED Status: Acute Comment: Infectious causes ruled out, start Imodium (3) HLD (hyperlipidemia) Code(s): E78.5 - HYPERLIPIDEMIA, UNSPECIFIED Status: Chronic Comment: on statin (4) DM2 (diabetes mellitus, type 2) Status: Chronic Comment: under reasonable control, continue accuchecks, insulin sliding scale (5) Gout Code(s): M10.9 - GOUT, UNSPECIFIED Status: Chronic Comment: stable, on allopurinol (6) Hypothyroid Code(s): E03.9 - HYPOTHYROIDISM, UNSPECIFIED Status: Chronic Comment: on synthroid - Plan * . Review of Systems - Review of Systems Constitutional: negative: fever, chills, sweats, weakness, malaise Respiratory: negative: Cough, Shortness of Breath, SOB with Excertion, Pleuritic Pain, Wheezing Cardiovascular: negative: chest pain, palpitations, orthopnea, paroxysmal nocturnal dyspnea, edema, light headedness Gastrointestinal: Diarrhea. negative: Nausea, Vomiting, Abdominal Pain, Constipation, Melena, Hematochezia Skin: Rash. negative: Lesions, Gucci, Bruising, Other Neurological: negative: Weakness, Numbness, Incoordination, Change in Speech, Confusion, Seizures - Medications/Allergies Allergies/Adverse Reactions: Allergies Allergy/AdvReac Type Severity Reaction Status Date / Time No Known Allergies Allergy Verified 10/16/17 01:28 Medications: Current Medications Acetaminophen (Tylenol) 650 mg PO Q4H PRN PRN Reason: Headache/Fever or Pain Hydrocodone Bitart/Acetaminophen ([place] 5/325) 1 tab PO Q4H PRN PRN Reason: Moderate Pain (4-6) Last Admin: 10/17/17 23:42 Dose: 1 tab Hydrocodone Bitart/Acetaminophen ([place] 5/325) 2 tab PO Q4H PRN PRN Reason: Severe Pain (7-10) Last Admin: 10/19/17 09:32 Dose: 2 tab Al Hydroxide/Mg Hydroxide (Maalox) 30 ml PO Q6H PRN PRN Reason: Heartburn or Indigestion Allopurinol (Zyloprim) 300 mg PO DAILY [facility] Last Admin: 10/19/17 09:34 Dose: 300 mg Anastrozole (Arimidex) 1 mg PO DAILY [facility] Last Admin: 10/19/17 09:34 Dose: Not Given Atorvastatin Calcium (Lipitor) 20 mg PO DAILY [facility] Last Admin: 10/19/17 09:34 Dose: 20 mg Benzonatate (Tessalon) 100 mg PO Q4H PRN PRN Reason: Cough Bisacodyl (Dulcolax) 10 mg PO DAILYPRN PRN PRN Reason: Constipation Calcium Carbonate (Tums) 1,000 mg PO Q4H PRN PRN Reason: Heartburn or Indigestion Clonidine (Catapres) 0.1 mg PO Q4H PRN PRN Reason: Systolic BP > 160 Colchicine (Colcrys) 0.6 mg PO DAILY [facility] Last Admin: 10/19/17 09:34 Dose: 0.6 mg Colchicine (Colcrys) 0.6 mg PO BIDPRN PRN PRN Reason: GOUT PAIN Last Admin: 10/18/17 19:52 Dose: 0.6 mg Dextrose/Water (Dextrose 50%) 25 gm SLOW IVP PRN PRN PRN Reason: Hypoglycemia Enoxaparin Sodium (Lovenox) 40 mg SC 0900 [facility] Last Admin: 10/19/17 09:34 Dose: 40 mg Famotidine (Pepcid) 20 mg PO BID [facility] Last Admin: 10/19/17 09:34 Dose: 20 mg Gabapentin (Neurontin) 100 mg PO TID [facility] Last Admin: 10/19/17 13:01 Dose: 100 mg Gemfibrozil (Lopid) 600 mg PO DAILY[facility] Last Admin: 10/19/17 09:34 Dose: 600 mg Glucagon (Glucagon) 1 mg IM PRN PRN PRN Reason: Hypoglycemia Guaifenesin (Robitussin Sf) 200 mg PO Q4H PRN PRN Reason: Cough Hydralazine HCl (Apresoline) 10 mg SLOW IVP Q4H PRN PRN Reason: Systolic BP > 170 Dextrose/Water (D5w) 1,000 mls @ 0 mls/hr IV .Q0M PRN; As Directed PRN Reason: Hypoglycemia Piperacillin Sod/Tazobactam (Sod 3.375 gm/ Sodium Chloride) 100 mls @ 200 mls/ hr IVPB Q6HR [facility] Last Admin: 10/19/17 13:01 Dose: 100 mls Vancomycin HCl 1.25 gm/ Sodium (Chloride) 250 mls @ 166.667 mls/hr IVPB 0600, 1800 [facility] Last Admin: 10/19/17 05:44 Dose: 250 mls Insulin Human Lispro (Humalog) 0 units SC .MODERATE SLIDING SC PRN PRN Reason: Moderate Correctional Scale Insulin Human Lispro (Humalog) 0 units SC .BEDTIME SLIDING SC PRN PRN Reason: Bedtime Correctional Scale Levothyroxine Sodium (Synthroid) 175 mcg PO DAILY-[facility] Last Admin: 10/19/17 09:34 Dose: 175 mcg Loperamide HCl (Imodium) 2 mg PO PRN PRN PRN Reason: Diarrhea/Loose Stools Loratadine (Claritin) 10 mg PO DAILYPRN PRN PRN Reason: Sinus Symptoms Lorazepam (Ativan) 1 mg PO Q4H PRN PRN Reason: Anxiety/Agitation Metformin HCl (Glucophage) 500 mg PO BID-[facility] Last Admin: 10/19/17 09:34 Dose: 500 mg Miscellaneous Medication (Pharmacy To Dose) 1 each IVPB PRN PRN PRN Reason: SSSI (Empagliflozin/Linagliptin [ Glyxambi 25 Mg-5 Mg Tablet] 1 Each) 1 each PO DAILY [facility] (Prasterone (Dhea) [ (Dhea 25] 50 Mg)) 50 mg PO DAILY [facility] Ondansetron HCl (Zofran) 4 mg IVP Q6H PRN PRN Reason: Nausea/Vomiting Pantoprazole Sodium (Protonix) 40 mg PO DAILY [facility] Last Admin: 10/19/17 09:34 Dose: 40 mg Saccharomyces Boulardii (Florastor) 250 mg PO DAILY [facility] Last Admin: 10/19/17 09:35 Dose: 250 mg Senna (Senokot) 2 tab PO HSPRN PRN PRN Reason: Constipation Tramadol HCl (Ultram) 50 mg PO Q4H PRN PRN Reason: Moderate Pain (4-6)
[2017-10-20 05:31] LABS: #Basophils 0.1 thou/uL (0.0-0.2); #Eosinphils 0.8 thou/uL (0.0-0.7); #Lymphocytes 2.5 thou/uL (1.20-3.40); #Monocytes 0.8 thou/uL (0.11-0.59); #Neutrophils 2.7 thou/uL (1.40-6.50); %Basophils 1.1 % (0.0-1.0); %Eosinophils 11.6 % (0.0-10.0); %Lymphocytes 36.3 % (21.0-51.0); %Monocytes 11.6 % (0.0-10.0); %Neutrophils 39.3 % (42.0-75.0); Mean Corpuscular HGB CONC 34.1 g/dL (32.0-36.0); Mean Corpuscular Hemoglobin 32.4 pg (27.0-31.0); Mean Corpuscular Volume 95.2 fL (78.0-98.0); Platelet Count 184 thou/uL (130-400); RBC Distribution Width 12.4 % (11.5-14.5); Red Blood Cell (RBC) Count 4.94 mill/uL (4.70-6.10); White Blood Cell (WBC) Count 6.9 thou/uL (4.8-10.8)
[2017-10-20 06:13] LABS: Anion Gap 14 mmol/L (10-20); BUN (Urea Nitrogen) 22 mg/dL (8.4-25.7); Calc. Creatinine Clearance 96 mL/min (70-130); Calcium 9.5 mg/dL (7.8-10.44); Carbon Dioxide 26 mmol/L (22-29); Chloride 105 mmol/L (98-107); Estimated GFR-MDRD 59; Glucose 103 mg/dL (70-105); Potassium 4.7 mmol/L (3.5-5.1); Sodium 140 mmol/L (136-145)
[2017-10-20] MEDS: Piperacillin/Tazobactam 3.375 GM in Sodium Chloride 0.9% 100 ML IVPB SCH (06:24)
[2017-10-20] MEDS: Vancomycin HCl 1.25 GM in Sodium Chloride 0.9% 250 ML 250 ML IVPB SCH (06:25)
[2017-10-20 07:43] VITALS: BP 117/76; TEMP 98
[2017-10-20] MEDS: Anastrozole 1 MG TAB PO SCH (08:42)
[2017-10-20] MEDS: Gabapentin 100 MG CAP PO SCH ×2 (08:42→14:25)
[2017-10-20] MEDS: Atorvastatin Calcium 20 MG TAB PO SCH (08:42)
[2017-10-20] MEDS: Gemfibrozil 600 MG TAB PO SCH (08:42)
[2017-10-20] MEDS: Famotidine 20 MG TAB PO SCH (08:44)
[2017-10-20] MEDS: Allopurinol 300 MG TAB PO SCH (08:44)
[2017-10-20] MEDS: metFORMIN 500 MG TAB PO SCH ×2 (08:44→17:50)
[2017-10-20] MEDS: Enoxaparin Sodium 40 MG/0.4 ML SYRINGE SC SCH (08:45)
[2017-10-20] MEDS: Colchicine 0.6 MG TAB PO SCH (08:45)
[2017-10-20] MEDS: HYDROcodone/Acetaminophen 5/325 mg Tablet PO PRN ×2 (08:47→12:57)
[2017-10-20] MEDS: Saccharomyces boulardii 250 MG CAP PO SCH (11:15)
[2017-10-20] MEDS: Levothyroxine 175 MCG TAB PO SCH (11:16)
[2017-10-20] MEDS: Cephalexin 250 MG CAP PO SCH ×2 (12:55→17:52)
[2017-10-20] MEDS: EMPAGLIFLOZIN PO SCH ×2 (14:03→14:04)
[2017-10-20] MEDS: LINAGLIPTIN PO SCH ×2 (14:03→14:04)
[2017-10-20] MEDS: PRASTERONE 50 MG PO SCH (14:04)
[2017-10-20] MEDS ORDERED: Vancomycin HCl 1 GM in Premix Bag 1 BAG IVPB SCH (18:00)
--- NOTE | 2017-10-21 04:14 | DIS ---
DATE OF ADMISSION: 10/15/2017 DATE OF DISCHARGE: 10/20/2017 PRIMARY CARE PROVIDER: Janell Dykes MD DISCHARGE DIAGNOSES: 1. Left great toe cellulitis. 2. Diarrhea. CONSULTATIONS DURING THIS HOSPITALIZATION: General Surgery, Dr. Quezada. CONDITION OF PATIENT ON THE DAY OF DISCHARGE: Stable. I assessed Mr. Smith on the day of dischar . He denies any chest pain or shortness of breath. He denies any diarrhea. PHYSICAL EXAMINATION: VITAL SIGNS: stable. HEART: S1 and S2 are heard, regular. LUNGS: Clear to auscultation bilaterally. DISCHARGE MEDICATIONS: Cephalexin 500 mg 4 times a day for 9 more days, allopurinol 300 mg daily, an astrozole 1 mg daily, Lipitor 20 mg daily, colchicine 0.6 mg daily, empagliflozin/linagliptin 1 table t daily, gabapentin 100 mg 3 times a day, Lopid 600 mg daily, glucosamine/D3/Boswellia 2 tablets patrick y, Synthroid 175 mcg daily, metformin 500 mg 2 times a day, Protonix 40 mg daily, DHEA 50 mg daily. HOSPITAL COURSE: Mr. Smith is a pleasant 62-year-old gentleman who was admitted to [facility] on 10/15/2017 for left great toe cellulitis. Please refer to Dr. Hirsch's histo ry and physical note for further details regarding this admission. He was treated with intravenous a ntibiotics. He was also seen by General Surgery Service. He did not need any surgical debridement. He was managed with wound care with dressing changes and he is being stepped down to oral antibiotic s on the day of discharge. He had diarrhea for 2 days prior to discharge. Clostridium difficile test was negative. Stool cultu res were negative as well. Wound culture result is pending at the time of this dictation. He is adv ised to follow up with his primary care provider for wound culture result. On the day of discharge, he has white count 6900, hemoglobin 16, platelet count 184,000, normal electrolytes and normal creati nine. Many thanks for allowing me to participate in the patient's care. Please feel free to contact me wit h any questions or concerns. DISCHARGE DESTINATION: Home. TOTAL AMOUNT OF TIME SPENT COORDINATING THIS DISCHARGE: 33 minutes.
[2017-10-21] MEDS ORDERED: Levothyroxine 175 MCG TAB PO SCH (06:00)
== END 2017-10-20 18:50 | disposition home or self-care (01) | DRG 603 ==
LOC: ERS 13:59 → T4-A 17:20
PROVIDERS: ADMIT Internal Medicine; ATTEND Internal Medicine
DX: L03.032 Cellulitis of left toe (principal); E78.5 Hyperlipidemia, unspecified; E03.9 Hypothyroidism, unspecified; E11.40 Type 2 diabetes mellitus with diabetic neuropathy, unspecified; R19.7 Diarrhea, unspecified; M10.9 Gout, unspecified; S90.422A Blister (nonthermal), left great toe, initial encounter; W01.190A Fall on same level from slipping, tripping and stumbling with subsequent striking against furniture, initial encounter; Y92.009 Unspecified place in unspecified non-institutional (private) residence as the place of occurrence of the external cause; E11.621 Type 2 diabetes mellitus with foot ulcer; L97.529 Non-pressure chronic ulcer of other part of left foot with unspecified severity; Z79.84 Long term (current) use of oral hypoglycemic drugs; Z83.3 Family history of diabetes mellitus; Z82.3 Family history of stroke
CPT/HCPCS: 36415; 36416; 72100; 80048; 80053; 80202; 83605; 85025; 85652; 86140; 87040; 87045; 87046; 87070; 87205; 87324; 87449; 87899; 96361; 96365; 96366; 96367; J1650; J2543; J3370; J7050

== ENCOUNTER 2021-08-31 15:45 | Inpatient (IN) | payer SELFPAY ==
[2021-08-31 16:21] LABS: Hemoglobin 15.2 g/dL (14.0-18.0); Mean Corpuscular HGB CONC 34.1 g/dL (32.0-36.0); Mean Corpuscular Hemoglobin 32.4 pg (27.0-31.0); Mean Platelet Volume 8.3 fL (7.4-10.4); Platelet Count 235 thou/uL (130-400); Red Blood Cell (RBC) Count 4.69 mill/uL (4.70-6.10); White Blood Cell (WBC) Count 6.1 thou/uL (4.8-10.8)
[2021-08-31 16:41] LABS: Band 1 % (5-11); Eosinophils 1 % (0-10); Lymphocytes 45 % (21-51); MDiff Complete? YES; Monocytes 18 % (0-10); Neutrophil 30 % (42-75); Platelet Morphology Comment Appears Adequate; Polychromasia SLIGHT = 2-3 cells (100X) (0-2/hpf); Reactive Lymphocytes 4 % (0-10)
[2021-08-31 16:50] LABS: Albumin 4.6 g/dL (3.4-4.8)
[2021-08-31 16:51] LABS: Chloride 101 mmol/L (98-107)
[2021-08-31 16:52] LABS: Alkaline Phosphatase 57 U/L (40-110); Anion Gap 14 mmol/L (10-20); Bilirubin, Total 0.4 mg/dL (0.2-1.2); Carbon Dioxide 24 mmol/L (23-31); Globulin 4.3 g/dL (2.4-3.5); Glucose 145 mg/dL (80-115); Potassium 4.4 mmol/L (3.5-5.1); Protein, Total 8.9 g/dL (5.8-8.1); Sodium 135 mmol/L (136-145)
[2021-08-31 17:31] LABS: BUN (Urea Nitrogen) 20 mg/dL (8.4-25.7); Calc. Creatinine Clearance 0 mL/min (70-130)
[2021-08-31 17:33] LABS: ALT (SGPT) 37 U/L (8-55); AST (SGOT) 40 U/L (5-34)
[2021-08-31] MEDS ORDERED: Cefepime 2 GM VIAL ONE (17:59)
[2021-08-31] MEDS ORDERED: Vancomycin 1 GM/200 ML BAG ONE (19:16)
[2021-08-31] MEDS ORDERED: Ondansetron PF 4 MG/2 ML Vial IVP PRN (20:00)
[2021-08-31] MEDS ORDERED: Ondansetron ODT 4 MG TAB SL PRN (20:00)
[2021-08-31 20:13] LABS: Lactic Acid 0.8 mmol/L (0.5-2.2)
[2021-08-31] MEDS ORDERED: Dextrose 5% in Water 1,000 ML IV PRN (20:46)
[2021-08-31] MEDS ORDERED: Dextrose 50% Abboject 50 ML SYRINGE SLOW IVP PRN (20:46)
[2021-08-31] MEDS ORDERED: HumaLOG 300 UNITS/3 ML VIAL SC PRN ×2 (20:46)
[2021-08-31] MEDS ORDERED: Bisacodyl 10 MG SUPP PR PRN (20:46)
[2021-08-31] MEDS ORDERED: Acetaminophen 325 MG TAB PO PRN (20:46)
[2021-08-31] MEDS ORDERED: Zolpidem Tartrate 5 MG TAB PO PRN (20:46)
[2021-08-31] MEDS ORDERED: Morphine 2 MG/ML VIAL SLOW IVP PRN (20:51)
[2021-08-31] MEDS ORDERED: hydrALAZINE 20 MG/ML VIAL SLOW IVP PRN (20:51)
[2021-08-31 21:44] VITALS: BMI 36.1
[2021-08-31] MEDS: Sodium Chloride 0.9% 1,000 ML IV SCH ×2 (21:44→21:51)
[2021-08-31] MEDS: HYDROcodone/Acetaminophen 7.5/325 mg Tablet PO PRN (21:55)
[2021-08-31] MEDS: Colchicine 0.6 MG TAB PO SCH (21:55)
[2021-08-31] MEDS ORDERED: Vancomycin 1 GM in Premix Bag 1 BAG IVPB SCH (23:30)
[2021-09-01] MEDS: HYDROcodone/Acetaminophen 7.5/325 mg Tablet PO PRN ×5 (02:05→21:30)
[2021-09-01] MEDS: Sodium Chloride 0.9% 1,000 ML IV SCH ×2 (05:58→10:15)
[2021-09-01] MEDS: Levothyroxine 175 MCG TAB PO SCH (05:59)
[2021-09-01] MEDS ORDERED: Levothyroxine Sodium 75 MCG TAB PO SCH (06:00)
[2021-09-01 06:24] LABS: Creatinine, Urine 36.14 mg/dL (63-166)
[2021-09-01 07:42] LABS: Albumin 3.8 g/dL (3.4-4.8); Anion Gap 12 mmol/L (10-20); BUN (Urea Nitrogen) 18 mg/dL (8.4-25.7); BUN/Creatinine Ratio 14.06; Calc. Creatinine Clearance 86 mL/min (70-130); Carbon Dioxide 22 mmol/L (23-31); Chloride 105 mmol/L (98-107); Glucose 131 mg/dL (80-115); Phosphorus 4.5 mg/dL (2.3-4.7); Sodium 135 mmol/L (136-145)
[2021-09-01 08:11] LABS: Band 3 % (5-11); Eosinophils 9 % (0-10); Hemoglobin 14.6 g/dL (14.0-18.0); Lymphocytes 37 % (21-51); MDiff Complete? YES; Macrocytosis SLIGHT = 6-15 cells (100X) (0-5/hpf); Mean Corpuscular HGB CONC 32.2 g/dL (32.0-36.0); Mean Corpuscular Hemoglobin 31.7 pg (27.0-31.0); Mean Corpuscular Volume 98.5 fL (78.0-98.0); Mean Platelet Volume 8.4 fL (7.4-10.4); Monocytes 20 % (0-10); Neutrophil 21 % (42-75); Platelet Count 183 thou/uL (130-400); Platelet Morphology Comment Appears Adequate; Polychromasia SLIGHT = 2-3 cells (100X) (0-2/hpf); RBC Distribution Width 11.9 % (11.5-14.5); Reactive Lymphocytes 10 % (0-10); White Blood Cell (WBC) Count 4.9 thou/uL (4.8-10.8)
[2021-09-01] MEDS: Colchicine 0.6 MG TAB PO SCH (08:53)
[2021-09-01] MEDS: Allopurinol 300 MG TAB PO SCH (08:53)
[2021-09-01] MEDS: metFORMIN 500 MG TAB PO SCH ×2 (08:53→16:00)
[2021-09-01] MEDS: Alogliptin 6.25 MG TAB PO SCH (08:53)
[2021-09-01] MEDS: Enoxaparin Sodium 40 MG/0.4 ML SYRINGE SC SCH (08:54)
[2021-09-01] MEDS ORDERED: Famotidine 20 MG TAB PO SCH (09:00)
[2021-09-01] MEDS ORDERED: Empagliflozin 25 MG TAB PO SCH (09:00)
[2021-09-01] MEDS ORDERED: Vancomycin 1.5 GRAM/300 ML BAG 1.5 GM in Premix Bag 1 BAG IVPB SCH (21:00)
[2021-09-01] MEDS: Famotidine 20 MG TAB PO SCH (21:30)
[2021-09-01] MEDS: Sodium Bicarbonate Tab 325 MG TAB PO SCH (21:30)
[2021-09-02] MEDS: HYDROcodone/Acetaminophen 7.5/325 mg Tablet PO PRN ×3 (01:58→09:46)
[2021-09-02 05:28] LABS: Bacteria/HPF None Seen HPF (None Seen); Bilirubin Negative (Negative); Blood, Urine Negative (Negative); Clarity Clear (Clear); Glucose, Urine (Dipstick) Greater than 1000 mg/dL (Negative); Ketone, Urine Negative (Negative); Leukocyte Negative Leu/uL (Negative); Nitrite Negative (Negative); Protein, Urine (Dipstick) Negative (Neg-Trace); RBC/HPF None Seen HPF (0-3); Squamous Epithelial None Seen HPF (0-3); Urobilinogen Normal mg/dL (Less than 2); WBC/HPF 0-3 HPF (0-3)
[2021-09-02] MEDS: Levothyroxine 175 MCG TAB PO SCH (05:35)
[2021-09-02] MEDS: Sodium Chloride 0.9% 1,000 ML IV SCH ×3 (05:37→14:50)
[2021-09-02 05:43] LABS: Urine Culture Reflex No No
[2021-09-02 06:38] LABS: Anion Gap 12 mmol/L (10-20); BUN (Urea Nitrogen) 22 mg/dL (8.4-25.7); Calc. Creatinine Clearance 71 mL/min (70-130); Calcium 9.3 mg/dL (7.8-10.44); Carbon Dioxide 26 mmol/L (23-31); Chloride 104 mmol/L (98-107); Glucose 114 mg/dL (80-115); Potassium 4.1 mmol/L (3.5-5.1); Sodium 138 mmol/L (136-145)
[2021-09-02 07:17] LABS: Band 4 % (5-11); Eosinophils 8 % (0-10); Hemoglobin 14.6 g/dL (14.0-18.0); Lymphocytes 53 % (21-51); MDiff Complete? YES; Mean Corpuscular HGB CONC 33.4 g/dL (32.0-36.0); Mean Corpuscular Hemoglobin 32.6 pg (27.0-31.0); Mean Corpuscular Volume 97.6 fL (78.0-98.0); Mean Platelet Volume 8.6 fL (7.4-10.4); Monocytes 7 % (0-10); Neutrophil 26 % (42-75); Platelet Count 191 thou/uL (130-400); RBC Distribution Width 11.8 % (11.5-14.5); Red Blood Cell (RBC) Count 4.49 mill/uL (4.70-6.10); White Blood Cell (WBC) Count 5.4 thou/uL (4.8-10.8)
[2021-09-02 07:45] VITALS: BP 125/85; TEMP 97.6
[2021-09-02] MEDS: Alogliptin 6.25 MG TAB PO SCH (08:56)
[2021-09-02] MEDS: Famotidine 20 MG TAB PO SCH (08:57)
[2021-09-02] MEDS: Allopurinol 300 MG TAB PO SCH (08:57)
[2021-09-02] MEDS: Sodium Bicarbonate Tab 325 MG TAB PO SCH (08:57)
[2021-09-02] MEDS: Enoxaparin Sodium 40 MG/0.4 ML SYRINGE SC SCH (08:58)
== END 2021-09-02 17:00 | disposition home or self-care (01) | DRG 639 ==
LOC: ERS 15:45 → T4-A 18:41
PROVIDERS: ADMIT Hospitalist; ATTEND Hospitalist
DX: E11.621 Type 2 diabetes mellitus with foot ulcer (principal); E11.628 Type 2 diabetes mellitus with other skin complications; L03.032 Cellulitis of left toe; N17.9 Acute kidney failure, unspecified; Z20.822 Contact with and (suspected) exposure to COVID-19; L97.529 Non-pressure chronic ulcer of other part of left foot with unspecified severity; M10.9 Gout, unspecified; E78.5 Hyperlipidemia, unspecified; E78.00 Pure hypercholesterolemia, unspecified; J44.9 Chronic obstructive pulmonary disease, unspecified; E03.9 Hypothyroidism, unspecified; E11.319 Type 2 diabetes mellitus with unspecified diabetic retinopathy without macular edema; E11.22 Type 2 diabetes mellitus with diabetic chronic kidney disease; I12.9 Hypertensive chronic kidney disease with stage 1 through stage 4 chronic kidney disease, or unspecified chronic kidney disease; N18.30 Chronic kidney disease, stage 3 unspecified; Z90.49 Acquired absence of other specified parts of digestive tract; Z79.899 Other long term (current) drug therapy; Z79.890 Hormone replacement therapy; Z79.84 Long term (current) use of oral hypoglycemic drugs
CPT/HCPCS: 36415; 36416; 80048; 80053; 80069; 81001; 82570; 83605; 84156; 84300; 84443; 85025; 85652; 86140; 87040; 96365; 96367; J0692; J1650; J3370; J7050; U0003; U0005

== ENCOUNTER 2021-10-10 10:38 | Outpatient (CLI) | payer OTHER | END 2021-10-10 10:39 | disposition home or self-care (01) | LOC: BICRAD 10:38 | PROVIDERS: ATTEND Family Medicine | DX: R91.8 Other nonspecific abnormal finding of lung field (principal) | CPT/HCPCS: 71046 ==

== ENCOUNTER 2022-04-21 15:20 | Emergency (ER) | payer OTHER, SELFPAY | END 2022-04-21 18:19 | disposition home or self-care (01) | LOC: ERS 15:20 | DX: S86.911A Strain of unspecified muscle(s) and tendon(s) at lower leg level, right leg, initial encounter (principal); E11.9 Type 2 diabetes mellitus without complications; E78.00 Pure hypercholesterolemia, unspecified; J44.9 Chronic obstructive pulmonary disease, unspecified; Z79.84 Long term (current) use of oral hypoglycemic drugs | CPT/HCPCS: 93970 ==

== ENCOUNTER 2023-01-02 13:11 | Inpatient (IN) | payer OTHER, MEDICAID ==
[2023-01-02 14:46] LABS: Hematocrit 44.8 % (42.0-52.0); Mean Corpuscular HGB CONC 35.7 g/dL (32.0-36.0); Mean Corpuscular Hemoglobin 31.7 pg (27.0-31.0); Mean Corpuscular Volume 88.9 fl (78.0-98.0); Platelet Count 139 10x3/uL (130-400); RBC Distribution Width 14.2 % (11.5-14.5); Red Blood Cell (RBC) Count 5.04 mill/uL (4.70-6.10); White Blood Cell (WBC) Count 8.7 10x3/uL (4.8-10.8)
[2023-01-02 14:49] LABS: Delete Auto Diff?? YES; Manual Diff?? YES
[2023-01-02] MEDS ORDERED: Piperacillin/Tazobactam 4.5 GM VIAL ONE (14:56)
[2023-01-02] MEDS ORDERED: Cefepime 2 GM VIAL ONE (14:56)
[2023-01-02] MEDS ORDERED: Vancomycin 1.5 GRAM/300 ML BAG 1.5 GM in Premix Bag 1 BAG IVPB SCH (15:00)
[2023-01-02] MEDS ORDERED: Ondansetron PF 4 MG/2 ML Vial ONE (15:04)
[2023-01-02 15:26] LABS: ALT (SGPT) 55 U/L (8-55); AST (SGOT) 74 U/L (5-34); Albumin 4.1 g/dL (3.4-4.8); Alkaline Phosphatase 64 U/L (40-110); Anion Gap 17 mmol/L (10-20); BUN (Urea Nitrogen) 25 mg/dL (8.4-25.7); Bilirubin, Total 0.5 mg/dL (0.2-1.2); Calc. Creatinine Clearance 0 mL/min (70-130); Calcium 9.7 mg/dL (7.8-10.44); Carbon Dioxide 18 mmol/L (23-31); Chloride 100 mmol/L (98-107); Estimated GFR 47; Globulin 4.2 g/dL (2.4-3.5); Glucose 148 mg/dL (80-115); Protein, Total 8.3 g/dL (5.8-8.1); Sodium 131 mmol/L (136-145)
[2023-01-02 15:48] LABS: Band 14 % (5-11); CellaVision Operator ID LAB.KB; Eosinophils 3 % (0-10); Lymphocytes 23 % (21-51); Monocytes 8 % (0-10); Neutrophil 52 % (42-75); Platelet Adequacy Comment Platelets Normal; Polychromasia SLIGHT = 2-3 cells HPF (0-2); Smudge Cells 15.8 %; Total Cell Count 101
[2023-01-02] MEDS ORDERED: Ondansetron ODT 4 MG TAB PO PRN (16:31)
[2023-01-02] MEDS ORDERED: Acetaminophen 325 MG TAB PO PRN (16:31)
[2023-01-02] MEDS ORDERED: Senokot S 8.6-50 MG TAB PO PRN (16:31)
[2023-01-02] MEDS ORDERED: Calcium Carbonate 500 MG ChewTAB PO PRN (16:31)
[2023-01-02] MEDS ORDERED: Ondansetron PF 4 MG/2 ML Vial IVP PRN (16:31)
[2023-01-02] MEDS ORDERED: Glucagon 1 MG/ML KIT IM PRN (16:33)
[2023-01-02] MEDS ORDERED: HumaLOG 300 UNITS/3 ML VIAL SC PRN ×2 (16:33)
[2023-01-02] MEDS ORDERED: Dextrose 5% in Water 1,000 ML IV PRN (16:33)
[2023-01-02] MEDS ORDERED: Dextrose 50% Abboject 50 ML SYRINGE SLOW IVP PRN (16:33)
[2023-01-02] MEDS ORDERED: Sodium Chloride 0.9% 1,000 ML IV SCH ×2 (16:45)
[2023-01-02] MEDS: Lactated Ringer's 1,000 ML IV SCH (17:08)
[2023-01-02] MEDS: HYDROcodone/Acetaminophen 5/325 mg Tablet PO PRN (19:40)
[2023-01-02 19:47] VITALS: BMI 33.7
[2023-01-02] MEDS ORDERED: Vancomycin 1 GM in Premix Bag 1 BAG IVPB SCH (21:00)
[2023-01-02] MEDS: metroNIDAZOLE 500 MG TAB PO SCH (22:23)
[2023-01-02] MEDS: Famotidine 20 MG TAB PO SCH (22:23)
[2023-01-02 23:57] LABS: Bacteria/HPF None Seen HPF (None Seen); Bilirubin Negative (Negative); Blood, Urine Trace (Negative); Clarity Clear (Clear); Glucose, Urine (Dipstick) Greater than 1000 mg/dL (Negative); Ketone, Urine Negative (Negative); Leukocyte Negative Leu/uL (Negative); Nitrite Negative (Negative); Protein, Urine (Dipstick) Negative (Neg-Trace); RBC/HPF 0-3 HPF (0-3); Squamous Epithelial None Seen HPF (0-3); Urobilinogen Normal mg/dL (Less than 2); WBC/HPF None Seen HPF (0-3); pH, Urine 6.5 (5.0-9.0)
[2023-01-03 05:34] LABS: #Basophils 0.1 thou/uL (0.0-0.2); #Eosinphils 0.3 thou/uL (0.0-0.7); #Monocytes 1.3 thou/uL (0.11-0.59); #Neutrophils 3.2 thou/uL (1.40-6.50); %Basophils 0.7 % (0.0-1.0); %Eosinophils 4.8 % (0.0-10.0); %Lymphocytes 29.4 % (21.0-51.0); %Monocytes 18.8 % (0.0-10.0); %Neutrophils 46.2 % (42.0-75.0); Hematocrit 42.5 % (42.0-52.0); Hemoglobin 14.5 g/dL (14.0-18.0); Mean Corpuscular HGB CONC 34.1 g/dL (32.0-36.0); Mean Corpuscular Volume 90.8 fl (78.0-98.0); Mean Platelet Volume 12.2 fL (7.4-10.4); Platelet Count 122 10x3/uL (130-400); RBC Distribution Width 14.4 % (11.5-14.5); Red Blood Cell (RBC) Count 4.68 mill/uL (4.70-6.10); White Blood Cell (WBC) Count 6.9 10x3/uL (4.8-10.8)
[2023-01-03 05:40] LABS: Anion Gap 14 mmol/L (10-20); BUN (Urea Nitrogen) 21 mg/dL (8.4-25.7); Calc. Creatinine Clearance 86 mL/min (70-130); Calcium 9.4 mg/dL (7.8-10.44); Carbon Dioxide 21 mmol/L (23-31); Chloride 103 mmol/L (98-107); Estimated GFR 68; Glucose 124 mg/dL (80-115); Potassium 3.8 mmol/L (3.5-5.1); Sodium 134 mmol/L (136-145)
[2023-01-03] MEDS: Lactated Ringer's 1,000 ML IV SCH ×2 (06:25→22:35)
[2023-01-03] MEDS: HYDROcodone/Acetaminophen 5/325 mg Tablet PO PRN (09:32)
[2023-01-03] MEDS: metroNIDAZOLE 500 MG TAB PO SCH ×3 (09:32→20:41)
[2023-01-03] MEDS: Famotidine 20 MG TAB PO SCH ×2 (09:33→20:41)
[2023-01-03] MEDS ORDERED: Magnevist 469MG/ML 20 ML VIAL ONE (10:13)
[2023-01-03] MEDS ORDERED: COLCHICINE 0.6 MG PO PRN (10:28)
[2023-01-03] MEDS ORDERED: HYDROcodone/Acetaminophen 10/325 mg Tablet PO PRN (10:29)
[2023-01-03] MEDS: Cefepime 1 GM in Sodium Chloride 0.9% 100 ML IVPB SCH (14:59)
[2023-01-03] MEDS: Vancomycin 1.5 GRAM/300 ML BAG 1.5 GM in Premix Bag 1 BAG IVPB SCH (16:33)
[2023-01-03] MEDS: Sodium Bicarbonate Tab 325 MG TAB PO SCH (20:40)
[2023-01-03] MEDS: Atorvastatin Calcium 40 MG TAB PO SCH (20:41)
[2023-01-03] MEDS: HYDROcodone/Acetaminophen 10/325 mg Tablet PO PRN (20:51)
[2023-01-04] MEDS: Cefepime 1 GM in Sodium Chloride 0.9% 100 ML IVPB SCH ×2 (00:06→15:15)
[2023-01-04 05:31] LABS: Hematocrit 45.1 % (42.0-52.0); Hemoglobin 15.4 g/dL (14.0-18.0); Mean Corpuscular HGB CONC 34.1 g/dL (32.0-36.0); Mean Corpuscular Hemoglobin 31.6 pg (27.0-31.0); Mean Corpuscular Volume 92.6 fl (78.0-98.0); Mean Platelet Volume 12.5 fL (7.4-10.4); Platelet Count 159 10x3/uL (130-400); RBC Distribution Width 14.5 % (11.5-14.5); Red Blood Cell (RBC) Count 4.87 mill/uL (4.70-6.10); White Blood Cell (WBC) Count 6.1 10x3/uL (4.8-10.8)
[2023-01-04] MEDS: Levothyroxine 175 MCG TAB PO SCH (05:51)
[2023-01-04 05:54] LABS: Anion Gap 15 mmol/L (10-20); BUN (Urea Nitrogen) 18 mg/dL (8.4-25.7); Calc. Creatinine Clearance 80 mL/min (70-130); Calcium 9.9 mg/dL (7.8-10.44); Carbon Dioxide 25 mmol/L (23-31); Chloride 104 mmol/L (98-107); Estimated GFR 63; Glucose 110 mg/dL (80-115); Potassium 4.7 mmol/L (3.5-5.1); Sodium 139 mmol/L (136-145)
[2023-01-04 06:00] LABS: Delete Auto Diff?? YES; Manual Diff?? YES
[2023-01-04 07:47] LABS: Anisocytosis MODERATE=16-30 cells HPF (0-5); Band 7 % (5-11); CellaVision Operator ID LAB.CMB; Eosinophils 4 % (0-10); Lymphocytes 38 % (21-51); Macrocytosis SLIGHT = 6-15 cells HPF (0-5); Monocytes 14 % (0-10); Neutrophil 34 % (42-75); Platelet Adequacy Comment Platelets Normal; Polychromasia SLIGHT = 2-3 cells HPF (0-2); Reactive Lymphocytes 4 % (0-10); Total Cell Count 104
[2023-01-04] MEDS ORDERED: Allopurinol 300 MG TAB PO SCH (09:00)
[2023-01-04] MEDS ORDERED: Allopurinol 100 MG TAB PO SCH (09:00)
[2023-01-04] MEDS ORDERED: Non-Formulary Item 1 EACH (Dapagliflozin Propanediol [Farxiga] 10 MG Tablet) PO SCH (09:00)
[2023-01-04] MEDS: Famotidine 20 MG TAB PO SCH ×2 (09:16→20:34)
[2023-01-04] MEDS: Sodium Bicarbonate Tab 325 MG TAB PO SCH ×2 (09:16→20:33)
[2023-01-04] MEDS: Gabapentin 100 MG CAP PO SCH (09:16)
[2023-01-04] MEDS: Empagliflozin 10 MG TAB PO SCH (09:17)
[2023-01-04] MEDS: metroNIDAZOLE 500 MG TAB PO SCH ×3 (09:17→20:33)
[2023-01-04] MEDS: HYDROcodone/Acetaminophen 10/325 mg Tablet PO PRN ×2 (09:19→20:37)
[2023-01-04] MEDS ORDERED: Loperamide HCl 2 MG CAP PO PRN (10:29)
[2023-01-04 14:59] LABS: Vancomycin, Trough 6.2 ug/mL
[2023-01-04] MEDS ORDERED: Vancomycin 1 GM in Premix Bag 1 BAG IVPB SCH (15:15)
[2023-01-04] MEDS: Vancomycin 1.5 GRAM/300 ML BAG 1.5 GM in Premix Bag 1 BAG IVPB SCH (17:18)
[2023-01-04] MEDS: Atorvastatin Calcium 40 MG TAB PO SCH ×2 (20:33→20:34)
[2023-01-05] MEDS: Cefepime 1 GM in Sodium Chloride 0.9% 100 ML IVPB SCH ×2 (00:59→13:42)
[2023-01-05] MEDS: Vancomycin 1 GM in Premix Bag 1 BAG IVPB SCH ×2 (03:53→15:27)
[2023-01-05] MEDS: HYDROcodone/Acetaminophen 10/325 mg Tablet PO PRN ×3 (05:24→19:23)
[2023-01-05] MEDS: Levothyroxine 175 MCG TAB PO SCH (05:25)
[2023-01-05 05:26] LABS: Hematocrit 45.2 % (42.0-52.0); Hemoglobin 15.1 g/dL (14.0-18.0); Mean Corpuscular HGB CONC 33.4 g/dL (32.0-36.0); Mean Corpuscular Hemoglobin 30.6 pg (27.0-31.0); Mean Corpuscular Volume 91.5 fl (78.0-98.0); Mean Platelet Volume 12.2 fL (7.4-10.4); Platelet Count 165 10x3/uL (130-400); RBC Distribution Width 14.5 % (11.5-14.5); Red Blood Cell (RBC) Count 4.94 mill/uL (4.70-6.10); White Blood Cell (WBC) Count 7.6 10x3/uL (4.8-10.8)
[2023-01-05 05:39] LABS: Delete Auto Diff?? YES; Manual Diff?? YES
[2023-01-05 06:22] LABS: Band 2 % (5-11); CellaVision Operator ID lab.abc; Eosinophils 7 % (0-10); Lymphocytes 38 % (21-51); Metamyelocyte 2 % (0-0); Monocytes 10 % (0-10); Neutrophil 38 % (42-75); Plasma Cells 1 % (0-0); Platelet Adequacy Comment Platelets Normal; RBC Morphology Within Normal Limits; Reactive Lymphocytes 3 % (0-10); Smudge Cells 12.9 %; Total Cell Count 101
[2023-01-05 06:38] LABS: Anion Gap 15 mmol/L (10-20); BUN (Urea Nitrogen) 16 mg/dL (8.4-25.7); Calc. Creatinine Clearance 77 mL/min (70-130); Calcium 9.8 mg/dL (7.8-10.44); Carbon Dioxide 26 mmol/L (23-31); Chloride 103 mmol/L (98-107); Estimated GFR 60; Glucose 141 mg/dL (80-115); Potassium 4.3 mmol/L (3.5-5.1); Sodium 140 mmol/L (136-145)
[2023-01-05] MEDS: Sodium Bicarbonate Tab 325 MG TAB PO SCH ×2 (10:00→20:38)
[2023-01-05] MEDS: Famotidine 20 MG TAB PO SCH ×2 (10:00→20:37)
[2023-01-05] MEDS: Allopurinol 300 MG TAB PO SCH (10:00)
[2023-01-05] MEDS: Gabapentin 100 MG CAP PO SCH (10:00)
[2023-01-05] MEDS: Empagliflozin 10 MG TAB PO SCH (10:00)
[2023-01-05] MEDS: metroNIDAZOLE 500 MG TAB PO SCH ×3 (10:00→20:37)
[2023-01-05] MEDS: Atorvastatin Calcium 40 MG TAB PO SCH (20:38)
[2023-01-06] MEDS: Cefepime 1 GM in Sodium Chloride 0.9% 100 ML IVPB SCH ×2 (00:09→13:54)
[2023-01-06 03:33] LABS: Vancomycin, Trough 14.9 ug/mL
[2023-01-06] MEDS: Vancomycin 1 GM in Premix Bag 1 BAG IVPB SCH ×2 (03:48→15:50)
[2023-01-06 04:20] LABS: Anion Gap 16 mmol/L (10-20); BUN (Urea Nitrogen) 18 mg/dL (8.4-25.7); Calc. Creatinine Clearance 105 mL/min (70-130); Calcium 10.1 mg/dL (7.8-10.44); Carbon Dioxide 19 mmol/L (23-31); Chloride 105 mmol/L (98-107); Estimated GFR 87; Glucose 106 mg/dL (80-115); Potassium 4.3 mmol/L (3.5-5.1); Sodium 136 mmol/L (136-145)
[2023-01-06] MEDS: Levothyroxine 175 MCG TAB PO SCH (05:46)
[2023-01-06] MEDS: HYDROcodone/Acetaminophen 10/325 mg Tablet PO PRN ×3 (05:47→19:36)
[2023-01-06] MEDS: Famotidine 20 MG TAB PO SCH ×2 (09:36→21:31)
[2023-01-06] MEDS: Saccharomyces boulardii 250 MG CAP PO SCH (09:36)
[2023-01-06] MEDS: Sodium Bicarbonate Tab 325 MG TAB PO SCH ×2 (09:36→21:31)
[2023-01-06] MEDS: metroNIDAZOLE 500 MG TAB PO SCH (09:36)
[2023-01-06] MEDS: Gabapentin 100 MG CAP PO SCH (09:37)
[2023-01-06] MEDS: Empagliflozin 10 MG TAB PO SCH (09:37)
[2023-01-06] MEDS: Allopurinol 300 MG TAB PO SCH (09:37)
[2023-01-06] MEDS: Atorvastatin Calcium 40 MG TAB PO SCH (21:31)
[2023-01-07] MEDS ORDERED: Cefepime 2 GM in Sodium Chloride 0.9% 100 ML IVPB SCH (01:00)
[2023-01-07] MEDS: Vancomycin 1 GM in Premix Bag 1 BAG IVPB SCH (04:07)
[2023-01-07] MEDS: HYDROcodone/Acetaminophen 10/325 mg Tablet PO PRN (04:16)
[2023-01-07] MEDS: Levothyroxine 175 MCG TAB PO SCH (05:48)
[2023-01-07 06:13] LABS: Anion Gap 17 mmol/L (10-20); BUN (Urea Nitrogen) 18 mg/dL (8.4-25.7); Calc. Creatinine Clearance 83 mL/min (70-130); Calcium 9.4 mg/dL (7.8-10.44); Carbon Dioxide 22 mmol/L (23-31); Chloride 102 mmol/L (98-107); Estimated GFR 66; Glucose 149 mg/dL (80-115); Potassium 4.4 mmol/L (3.5-5.1); Sodium 137 mmol/L (136-145)
[2023-01-07] MEDS: Saccharomyces boulardii 250 MG CAP PO SCH (08:21)
[2023-01-07] MEDS: Empagliflozin 10 MG TAB PO SCH (08:21)
[2023-01-07] MEDS: Gabapentin 100 MG CAP PO SCH (08:22)
[2023-01-07] MEDS: Allopurinol 300 MG TAB PO SCH (08:22)
[2023-01-07] MEDS: Famotidine 20 MG TAB PO SCH (08:22)
[2023-01-07] MEDS: Sodium Bicarbonate Tab 325 MG TAB PO SCH (08:23)
[2023-01-07] MEDS ORDERED: Fenofibrate Nanocrystallized 145 MG TAB PO SCH (09:00)
[2023-01-07 12:18] VITALS: BP 105/69; TEMP 97.9
[2023-01-07] MEDS ORDERED: Cefepime 1 GM in Sodium Chloride 0.9% 100 ML IVPB SCH (13:00)
[2023-01-07] MEDS ORDERED: Vancomycin 1 GM in Premix Bag 1 BAG IVPB SCH (13:45)
== END 2023-01-07 14:15 | disposition home or self-care (01) | DRG 872 ==
LOC: ERS 13:11 → SJJU 16:14
PROVIDERS: ADMIT Internal Medicine; ATTEND Internal Medicine
DX: A41.9 Sepsis, unspecified organism (principal); E87.20 Acidosis, unspecified; E87.1 Hypo-osmolality and hyponatremia; N17.9 Acute kidney failure, unspecified; E11.628 Type 2 diabetes mellitus with other skin complications; L03.031 Cellulitis of right toe; E78.5 Hyperlipidemia, unspecified; M10.9 Gout, unspecified; J44.9 Chronic obstructive pulmonary disease, unspecified; E03.9 Hypothyroidism, unspecified; N18.2 Chronic kidney disease, stage 2 (mild); D69.6 Thrombocytopenia, unspecified; E11.40 Type 2 diabetes mellitus with diabetic neuropathy, unspecified; E11.22 Type 2 diabetes mellitus with diabetic chronic kidney disease; I12.9 Hypertensive chronic kidney disease with stage 1 through stage 4 chronic kidney disease, or unspecified chronic kidney disease; Z79.899 Other long term (current) drug therapy; Z90.49 Acquired absence of other specified parts of digestive tract; Z82.49 Family history of ischemic heart disease and other diseases of the circulatory system; Z79.890 Hormone replacement therapy
CPT/HCPCS: 36415; 36416; 80048; 80053; 80202; 81001; 83605; 85025; 86140; 87040; 93005; 96365; 96367; 96368; 96375; 97139; A9579; J0692; J2405; J2543; J3370; J3370-JW; J3490; J7120

== ENCOUNTER 2023-02-21 14:38 | Inpatient (IN) | payer OTHER, MEDICAID ==
[2023-02-21] MEDS ORDERED: Piperacillin/Tazobactam 4.5 GM VIAL ONE (15:04)
[2023-02-21] MEDS ORDERED: Sodium Chloride 0.9% 100 ML ONE (15:04)
[2023-02-21 15:11] LABS: #Basophils 0.1 thou/uL (0.0-0.2); #Eosinphils 0.4 thou/uL (0.0-0.7); #Monocytes 1.6 thou/uL (0.11-0.59); #Neutrophils 8.2 thou/uL (1.40-6.50); %Basophils 0.4 % (0.0-1.0); %Eosinophils 2.8 % (0.0-10.0); %Lymphocytes 26.7 % (21.0-51.0); %Monocytes 11.2 % (0.0-10.0); %Neutrophils 58.1 % (42.0-75.0); Hematocrit 40.7 % (42.0-52.0); Mean Corpuscular HGB CONC 34.4 g/dL (32.0-36.0); Mean Corpuscular Hemoglobin 31.8 pg (27.0-31.0); Mean Corpuscular Volume 92.5 fl (78.0-98.0); Mean Platelet Volume 10.6 fL (7.4-10.4); Platelet Count 248 10x3/uL (130-400); RBC Distribution Width 14.8 % (11.5-14.5); White Blood Cell (WBC) Count 14.1 10x3/uL (4.8-10.8)
[2023-02-21 15:12] LABS: Actual Bicarbonate (HCO3v) 20.8 mEq/L (22-28); Base Excess -3.3 mEq/L (-2.0 to +3.0); Calcium, Ionized (venous) 1.14 mmol/L (1.16-1.32); Chloride (VBG) 99 mmol/L (98-106); Hematocrit-VBG 42 % (42.0-52.0); Hemoglobin (Hb) 14.4 g/dL (12.6-17.4); Potassium (VBG) 4.02 mmol/L (3.70-5.30); Sodium 134 mmol/L (133-146); pH (venous) 7.395 (7.32-7.43)
[2023-02-21] MEDS ORDERED: Vancomycin (BATCH) 2 GM in Premix 1 BAG IVPB SCH (15:30)
[2023-02-21 15:35] LABS: ALT (SGPT) 28 U/L (8-55); AST (SGOT) 18 U/L (5-34); Albumin 3.6 g/dL (3.4-4.8); Alkaline Phosphatase 68 U/L (40-110); Anion Gap 17 mmol/L (10-20); BUN (Urea Nitrogen) 16 mg/dL (8.4-25.7); Bilirubin, Total 0.9 mg/dL (0.2-1.2); Calc. Creatinine Clearance 0 mL/min (70-130); Calcium 9.1 mg/dL (7.8-10.44); Carbon Dioxide 19 mmol/L (23-31); Chloride 100 mmol/L (98-107); Estimated GFR 68; Globulin 3.7 g/dL (2.4-3.5); Glucose 234 mg/dL (80-115); Potassium 3.9 mmol/L (3.5-5.1); Protein, Total 7.3 g/dL (5.8-8.1); Sodium 132 mmol/L (136-145)
[2023-02-21] MEDS ORDERED: Ketorolac Tromethamine 30 MG/ML VIAL ONE (16:34)
[2023-02-21] MEDS ORDERED: Acetaminophen 500 MG TAB ONE (16:34)
[2023-02-21] MEDS ORDERED: Ondansetron PF 4 MG/2 ML Vial ONE (16:35)
[2023-02-21 18:07] LABS: Lactic Acid 1.6 mmol/L (0.5-2.2)
[2023-02-21 18:20] LABS: Bacteria/HPF None Seen HPF (None Seen); Bilirubin Negative (Negative); Blood, Urine Negative (Negative); CAUTI Indications for Culture Pelvic or flank pain; Clarity Clear (Clear); Glucose, Urine (Dipstick) Greater than 1000 mg/dL (Negative); Ketone, Urine Negative (Negative); Leukocyte Negative Leu/uL (Negative); Nitrite Negative (Negative); Protein, Urine (Dipstick) Negative (Neg-Trace); RBC/HPF 0-3 HPF (0-3); Specific Gravity, Urine 1.035 (1.002-1.036); Squamous Epithelial None Seen HPF (0-3); Urobilinogen Normal mg/dL (Less than 2); WBC/HPF None Seen HPF (0-3); pH, Urine 6.5 (5.0-9.0)
[2023-02-21 18:23] LABS: Urine Culture Reflex No No
[2023-02-21] MEDS ORDERED: Ondansetron ODT 4 MG TAB PO PRN (18:57)
[2023-02-21] MEDS ORDERED: Acetaminophen 650 MG Suppository PR PRN (18:57)
[2023-02-21] MEDS ORDERED: Acetaminophen 325 MG TAB PO PRN (18:57)
[2023-02-21] MEDS ORDERED: Ondansetron PF 4 MG/2 ML Vial IVP PRN (18:57)
[2023-02-21] MEDS ORDERED: Dextrose 50% Abboject 50 ML SYRINGE SLOW IVP PRN (19:09)
[2023-02-21] MEDS ORDERED: Glucagon 1 MG/ML KIT IM PRN (19:09)
[2023-02-21] MEDS ORDERED: HumaLOG 300 UNITS/3 ML VIAL SC PRN ×2 (19:09)
[2023-02-21] MEDS ORDERED: Dextrose 5% in Water 1,000 ML IV PRN (19:09)
[2023-02-21 19:28] VITALS: BMI 33.7
[2023-02-21] MEDS: Sodium Chloride 0.9% 1,000 ML IV SCH (20:10)
[2023-02-21] MEDS ORDERED: Ipratropium/Albuterol 3 ML NEB NEB PRN (20:28)
[2023-02-22] MEDS ORDERED: Ketorolac Tromethamine 30 MG/ML VIAL IVP SCH (00:15)
[2023-02-22] MEDS: Vancomycin 1 GM in Premix 1 BAG IVPB SCH ×2 (02:02→13:32)
[2023-02-22] MEDS ORDERED: Vancomycin (BATCH) 1.25 GM in Premix 1 BAG IVPB SCH (03:00)
[2023-02-22] MEDS ORDERED: Morphine 2 MG/ML VIAL SLOW IVP SCH (03:00)
[2023-02-22] MEDS: Piperacillin/Tazobactam 3.375 GM in Sodium Chloride 0.9% 100 ML IVPB SCH ×3 (03:26→18:09)
[2023-02-22 03:56] LABS: #Basophils 0.1 thou/uL (0.0-0.2); #Eosinphils 0.4 thou/uL (0.0-0.7); #Monocytes 1.3 thou/uL (0.11-0.59); #Neutrophils 6.9 thou/uL (1.40-6.50); %Basophils 0.4 % (0.0-1.0); %Eosinophils 3.7 % (0.0-10.0); %Lymphocytes 22.4 % (21.0-51.0); %Monocytes 11.2 % (0.0-10.0); %Neutrophils 61.7 % (42.0-75.0); Hematocrit 37.3 % (42.0-52.0); Hemoglobin 12.4 g/dL (14.0-18.0); Mean Corpuscular HGB CONC 33.2 g/dL (32.0-36.0); Mean Corpuscular Hemoglobin 31.2 pg (27.0-31.0); Mean Platelet Volume 10.8 fL (7.4-10.4); Platelet Count 210 10x3/uL (130-400); RBC Distribution Width 14.9 % (11.5-14.5); Red Blood Cell (RBC) Count 3.97 mill/uL (4.70-6.10); White Blood Cell (WBC) Count 11.2 10x3/uL (4.8-10.8)
[2023-02-22 04:16] LABS: Anion Gap 12 mmol/L (10-20); BUN (Urea Nitrogen) 14 mg/dL (8.4-25.7); Calc. Creatinine Clearance 99 mL/min (70-130); Calcium 8.3 mg/dL (7.8-10.44); Carbon Dioxide 21 mmol/L (23-31); Chloride 105 mmol/L (98-107); Estimated GFR 81; Glucose 126 mg/dL (80-115); Potassium 4.2 mmol/L (3.5-5.1); Sodium 134 mmol/L (136-145)
[2023-02-22] MEDS: Sodium Chloride 0.9% 1,000 ML IV SCH (05:14)
[2023-02-22] MEDS ORDERED: Colchicine 0.6 MG TAB PO PRN (09:56)
[2023-02-22] MEDS: HYDROcodone/Acetaminophen 10/325 mg Tablet PO PRN ×2 (10:04→20:12)
[2023-02-22] MEDS: Morphine 2 MG/ML VIAL SLOW IVP PRN ×2 (13:31→18:07)
[2023-02-22] MEDS: Gabapentin 100 MG CAP PO SCH ×2 (13:35→20:09)
[2023-02-22] MEDS: Cholecalciferol 1,000 UNITS (25 MCG) TAB PO SCH (20:09)
[2023-02-22] MEDS: Glimepiride 4 MG TAB PO SCH (20:10)
[2023-02-22] MEDS: Sodium Bicarbonate Tab 325 MG TAB PO SCH (20:10)
[2023-02-23] MEDS: Vancomycin 1 GM in Premix 1 BAG IVPB SCH ×2 (01:08→14:45)
[2023-02-23] MEDS: Piperacillin/Tazobactam 3.375 GM in Sodium Chloride 0.9% 100 ML IVPB SCH ×3 (02:38→18:01)
[2023-02-23] MEDS: Levothyroxine Sodium 100 MCG TAB PO SCH (05:12)
[2023-02-23] MEDS: HYDROcodone/Acetaminophen 10/325 mg Tablet PO PRN ×2 (05:23→10:21)
[2023-02-23] MEDS: Sodium Bicarbonate Tab 325 MG TAB PO SCH ×2 (08:18→20:49)
[2023-02-23] MEDS: Cholecalciferol 1,000 UNITS (25 MCG) TAB PO SCH ×2 (08:18→20:49)
[2023-02-23] MEDS: Empagliflozin 25 MG TAB PO SCH (08:18)
[2023-02-23] MEDS: Gabapentin 100 MG CAP PO SCH ×3 (08:19→20:49)
[2023-02-23] MEDS: Cyclobenzaprine 10 MG TAB PO SCH (08:19)
[2023-02-23] MEDS: Fenofibrate Nanocrystallized 145 MG TAB PO SCH (08:20)
[2023-02-23] MEDS: Atorvastatin Calcium 40 MG TAB PO SCH (08:20)
[2023-02-23] MEDS: Allopurinol 100 MG TAB PO SCH (08:20)
[2023-02-23] MEDS: Anastrozole 1 MG TAB PO SCH (08:20)
[2023-02-23] MEDS: Glimepiride 4 MG TAB PO SCH ×2 (08:21→20:50)
[2023-02-23] MEDS ORDERED: Vancomycin 1 GM in Premix 1 BAG IVPB SCH (12:30)
[2023-02-23 14:18] LABS: Vancomycin, Trough 12.9 ug/mL
[2023-02-23] MEDS: Morphine 2 MG/ML VIAL SLOW IVP PRN ×2 (14:28→21:07)
[2023-02-24] MEDS: Vancomycin 1 GM in Premix 1 BAG IVPB SCH ×2 (02:01→14:25)
[2023-02-24] MEDS: Piperacillin/Tazobactam 3.375 GM in Sodium Chloride 0.9% 100 ML IVPB SCH ×3 (02:11→18:37)
[2023-02-24] MEDS: Levothyroxine Sodium 100 MCG TAB PO SCH (05:42)
[2023-02-24] MEDS: HYDROcodone/Acetaminophen 10/325 mg Tablet PO PRN ×2 (06:01→18:40)
[2023-02-24 07:15] LABS: #Basophils 0.1 thou/uL (0.0-0.2); #Eosinphils 0.4 thou/uL (0.0-0.7); #Monocytes 1.1 thou/uL (0.11-0.59); #Neutrophils 5.3 thou/uL (1.40-6.50); %Basophils 0.8 % (0.0-1.0); %Eosinophils 4.2 % (0.0-10.0); %Lymphocytes 25.3 % (21.0-51.0); %Monocytes 12.2 % (0.0-10.0); Hematocrit 43.8 % (42.0-52.0); Hemoglobin 14.5 g/dL (14.0-18.0); Mean Corpuscular HGB CONC 33.1 g/dL (32.0-36.0); Mean Corpuscular Volume 93.8 fl (78.0-98.0); Mean Platelet Volume 10.7 fL (7.4-10.4); Platelet Count 271 10x3/uL (130-400); RBC Distribution Width 14.8 % (11.5-14.5); Red Blood Cell (RBC) Count 4.67 mill/uL (4.70-6.10); White Blood Cell (WBC) Count 9.2 10x3/uL (4.8-10.8)
[2023-02-24 07:40] LABS: Anion Gap 17 mmol/L (10-20); BUN (Urea Nitrogen) 11 mg/dL (8.4-25.7); Calc. Creatinine Clearance 90 mL/min (70-130); Calcium 10.1 mg/dL (7.8-10.44); Carbon Dioxide 25 mmol/L (23-31); Chloride 101 mmol/L (98-107); Estimated GFR 72; Glucose 86 mg/dL (80-115); Potassium 4.6 mmol/L (3.5-5.1); Sodium 138 mmol/L (136-145)
[2023-02-24] MEDS: Cholecalciferol 1,000 UNITS (25 MCG) TAB PO SCH ×2 (09:21→20:43)
[2023-02-24] MEDS: Allopurinol 100 MG TAB PO SCH (09:21)
[2023-02-24] MEDS: Empagliflozin 25 MG TAB PO SCH (09:23)
[2023-02-24] MEDS: Atorvastatin Calcium 40 MG TAB PO SCH (09:23)
[2023-02-24] MEDS: Sodium Bicarbonate Tab 325 MG TAB PO SCH ×2 (09:23→20:45)
[2023-02-24] MEDS: Anastrozole 1 MG TAB PO SCH (09:24)
[2023-02-24] MEDS: Glimepiride 4 MG TAB PO SCH ×2 (09:24→20:45)
[2023-02-24] MEDS: Fenofibrate Nanocrystallized 145 MG TAB PO SCH (09:24)
[2023-02-24] MEDS: Gabapentin 100 MG CAP PO SCH ×3 (09:25→20:44)
[2023-02-24] MEDS: Morphine 2 MG/ML VIAL SLOW IVP PRN ×2 (09:25→16:33)
[2023-02-24] MEDS: Cyclobenzaprine 10 MG TAB PO SCH (09:26)
[2023-02-25 02:12] LABS: Vancomycin, Trough 17.2 ug/mL
[2023-02-25] MEDS: Vancomycin 1 GM in Premix 1 BAG IVPB SCH ×2 (03:16→15:43)
[2023-02-25] MEDS: Piperacillin/Tazobactam 3.375 GM in Sodium Chloride 0.9% 100 ML IVPB SCH ×3 (03:17→18:21)
[2023-02-25] MEDS: Morphine 2 MG/ML VIAL SLOW IVP PRN ×4 (03:19→21:35)
[2023-02-25] MEDS: Levothyroxine Sodium 100 MCG TAB PO SCH (05:23)
[2023-02-25 06:56] LABS: #Basophils 0.1 thou/uL (0.0-0.2); #Eosinphils 0.6 thou/uL (0.0-0.7); #Monocytes 1.3 thou/uL (0.11-0.59); #Neutrophils 4.3 thou/uL (1.40-6.50); %Basophils 0.7 % (0.0-1.0); %Eosinophils 6.3 % (0.0-10.0); %Lymphocytes 28.9 % (21.0-51.0); %Neutrophils 48.5 % (42.0-75.0); Hematocrit 40.2 % (42.0-52.0); Hemoglobin 13.3 g/dL (14.0-18.0); Mean Corpuscular HGB CONC 33.1 g/dL (32.0-36.0); Mean Corpuscular Hemoglobin 31.4 pg (27.0-31.0); Mean Corpuscular Volume 94.8 fl (78.0-98.0); Mean Platelet Volume 10.4 fL (7.4-10.4); Platelet Count 258 10x3/uL (130-400); RBC Distribution Width 14.6 % (11.5-14.5); Red Blood Cell (RBC) Count 4.24 mill/uL (4.70-6.10); White Blood Cell (WBC) Count 8.9 10x3/uL (4.8-10.8)
[2023-02-25] MEDS: FARXIGA 10 MG PO SCH (08:48)
[2023-02-25] MEDS: Anastrozole 1 MG TAB PO SCH (08:49)
[2023-02-25] MEDS: Sodium Bicarbonate Tab 325 MG TAB PO SCH ×2 (08:49→21:35)
[2023-02-25] MEDS: Fenofibrate Nanocrystallized 145 MG TAB PO SCH (08:49)
[2023-02-25] MEDS: HYDROcodone/Acetaminophen 10/325 mg Tablet PO PRN ×2 (08:50→23:22)
[2023-02-25] MEDS: Allopurinol 100 MG TAB PO SCH (08:50)
[2023-02-25] MEDS: Atorvastatin Calcium 40 MG TAB PO SCH (08:50)
[2023-02-25] MEDS: Cholecalciferol 1,000 UNITS (25 MCG) TAB PO SCH ×2 (08:50→21:34)
[2023-02-25] MEDS: Gabapentin 100 MG CAP PO SCH ×3 (08:51→21:35)
[2023-02-25] MEDS: Glimepiride 4 MG TAB PO SCH ×2 (08:58→21:35)
[2023-02-25] MEDS: Cyclobenzaprine 10 MG TAB PO SCH (08:58)
[2023-02-26] MEDS: Vancomycin 1 GM in Premix 1 BAG IVPB SCH (02:36)
[2023-02-26] MEDS: Piperacillin/Tazobactam 3.375 GM in Sodium Chloride 0.9% 100 ML IVPB SCH (04:45)
[2023-02-26] MEDS: Levothyroxine Sodium 100 MCG TAB PO SCH (04:46)
[2023-02-26 07:44] VITALS: BP 104/71; TEMP 97.9
[2023-02-26] MEDS: FARXIGA 10 MG PO SCH (08:32)
[2023-02-26] MEDS: Fenofibrate Nanocrystallized 145 MG TAB PO SCH (08:34)
[2023-02-26] MEDS: Atorvastatin Calcium 40 MG TAB PO SCH (08:34)
[2023-02-26] MEDS: Cholecalciferol 1,000 UNITS (25 MCG) TAB PO SCH (08:35)
[2023-02-26] MEDS: Sodium Bicarbonate Tab 325 MG TAB PO SCH (08:37)
[2023-02-26] MEDS: HYDROcodone/Acetaminophen 10/325 mg Tablet PO PRN (08:37)
[2023-02-26] MEDS: Allopurinol 100 MG TAB PO SCH (08:37)
[2023-02-26] MEDS: Anastrozole 1 MG TAB PO SCH (08:37)
[2023-02-26] MEDS: Gabapentin 100 MG CAP PO SCH (08:39)
[2023-02-26] MEDS: Glimepiride 4 MG TAB PO SCH (08:40)
[2023-02-26] MEDS: Cyclobenzaprine 10 MG TAB PO SCH (08:40)
[2023-02-26] MEDS: Morphine 2 MG/ML VIAL SLOW IVP PRN (12:47)
== END 2023-02-26 15:10 | disposition home or self-care (01) | DRG 863 ==
LOC: ERS 14:38 → T4-A 18:01
PROVIDERS: ADMIT Internal Medicine; ATTEND Family Medicine
DX: T81.49XA Infection following a procedure, other surgical site, initial encounter (principal); E87.1 Hypo-osmolality and hyponatremia; L02.612 Cutaneous abscess of left foot; E78.5 Hyperlipidemia, unspecified; M10.9 Gout, unspecified; J44.9 Chronic obstructive pulmonary disease, unspecified; N18.9 Chronic kidney disease, unspecified; E11.621 Type 2 diabetes mellitus with foot ulcer; L97.519 Non-pressure chronic ulcer of other part of right foot with unspecified severity; E11.22 Type 2 diabetes mellitus with diabetic chronic kidney disease; L03.032 Cellulitis of left toe; E03.9 Hypothyroidism, unspecified; G89.29 Other chronic pain; Z90.49 Acquired absence of other specified parts of digestive tract; Z98.890 Other specified postprocedural states; Z79.899 Other long term (current) drug therapy
CPT/HCPCS: 36415; 36416; 80048; 80053; 80202; 81001; 82565; 82805; 83605; 85025; 86140; 87040; 87070; 87077; 87186; 87205; 93005; 96361; 96365; 96366; 96375; 97139; J1650; J1885; J2272; J2405; J2543; J3370; J3370-JW; J3490; J7050

== ENCOUNTER 2023-05-04 15:44 | Emergency (ER) | payer MEDICARE, MEDICAID | END 2023-05-04 16:58 | disposition home or self-care (01) | LOC: ERS 15:44 | DX: Z45.2 Encounter for adjustment and management of vascular access device (principal); N18.9 Chronic kidney disease, unspecified; E11.22 Type 2 diabetes mellitus with diabetic chronic kidney disease; E78.5 Hyperlipidemia, unspecified; Z79.84 Long term (current) use of oral hypoglycemic drugs; Z79.899 Other long term (current) drug therapy | CPT/HCPCS: 99283 ==

== ENCOUNTER 2024-02-07 15:45 | Emergency (ER) | payer MEDICARE, MEDICAID ==
[~2024-02-07 15:45] MED LIST: Iopamidol-370 76% 500 ML MDV (1 ML CHARGE) ONE
[2024-02-07] MEDS ORDERED: Dexamethasone 10 MG/ML VIAL ONE (16:15)
[2024-02-07] MEDS ORDERED: Ipratropium/Albuterol 3 ML NEB ONE ×2 (16:22→17:19)
[2024-02-07 16:30] LABS: Actual Bicarbonate (HCO3v) 24.1 mEq/L (22-28); Analyzer IN Cardio ER; Base Excess -0.5 mEq/L (-2.0 to +3.0); Calcium, Ionized (venous) 1.16 mmol/L (1.16-1.32); Chloride (VBG) 101 mmol/L (98-106); Hematocrit-VBG 47 % (42.0-52.0); Hemoglobin (Hb) 15.9 g/dL (12.6-17.4); Potassium (VBG) 5.02 mmol/L (3.70-5.30); Sodium 139 mmol/L (133-146); pH (venous) 7.402 (7.32-7.43)
[2024-02-07 16:40] LABS: #Basophils 0.05 10x3/uL (0.0-0.2); %Basophils 0.7 % (0.0-1.0); %Eosinophils 4.3 % (0.0-10.0); %Lymphocytes 28.1 % (21.0-51.0); %Monocytes 11.1 % (0.0-10.0); %Neutrophils 55.4 % (42.0-75.0); Hematocrit 44.4 % (42.0-52.0); Hemoglobin 15.2 g/dL (14.0-18.0); Mean Corpuscular HGB CONC 34.2 g/dL (32.0-36.0); Mean Corpuscular Hemoglobin 31.9 pg (27.0-31.0); Mean Corpuscular Volume 93.3 fL (78.0-98.0); Mean Platelet Volume 11.8 fL (7.4-10.4); Platelet Count 191 10x3/uL (130-400); RBC Distribution Width 14.3 % (11.5-14.5); Red Blood Cell (RBC) Count 4.76 mill/uL (4.70-6.10)
[2024-02-07 16:57] LABS: ALT (SGPT) 49 U/L (8-55); AST (SGOT) 42 U/L (5-34); Albumin 3.8 g/dL (3.4-4.8); Alkaline Phosphatase 62 U/L (40-110); Anion Gap 17 mmol/L (10-20); BUN (Urea Nitrogen) 21 mg/dL (8.4-25.7); Bilirubin, Total 0.7 mg/dL (0.2-1.2); Calc. Creatinine Clearance 0 mL/min (70-130); Calcium 9.2 mg/dL (7.8-10.44); Carbon Dioxide 22 mmol/L (23-31); Chloride 104 mmol/L (98-107); Estimated GFR 58; Globulin 3.2 g/dL (2.4-3.5); Glucose 201 mg/dL (80-115); Sodium 139 mmol/L (136-145)
[2024-02-07 17:03] LABS: Troponin I Less than 0.010 ng/mL (< 0.028)
[2024-02-07 19:42] LABS: Lactic Acid 2.08 mmol/L (0.5-2.2)
== END 2024-02-07 20:19 | disposition home or self-care (01) ==
LOC: ERS 15:45
DX: J18.9 Pneumonia, unspecified organism (principal); E11.22 Type 2 diabetes mellitus with diabetic chronic kidney disease; N18.9 Chronic kidney disease, unspecified; Z55.6 Problems related to health literacy
CPT/HCPCS: 71045; 71275; 80053; 82805; 83605; 83880; 84145; 84484; 85025; 87040; 93005; 94760; J1100; 36415; 96374; J7620; Q9967

== ENCOUNTER 2024-02-14 06:49 | Emergency (ER) | payer MEDICARE, MEDICAID ==
[2024-02-14 07:28] LABS: #Basophils 0.06 10x3/uL (0.0-0.2); %Basophils 0.6 % (0.0-1.0); %Eosinophils 2.8 % (0.0-10.0); %Lymphocytes 44.2 % (21.0-51.0); %Monocytes 7.7 % (0.0-10.0); %Neutrophils 43.7 % (42.0-75.0); Hematocrit 49.1 % (42.0-52.0); Hemoglobin 16.6 g/dL (14.0-18.0); Mean Corpuscular HGB CONC 33.8 g/dL (32.0-36.0); Mean Corpuscular Hemoglobin 31.6 pg (27.0-31.0); Mean Corpuscular Volume 93.3 fL (78.0-98.0); Mean Platelet Volume 11.2 fL (7.4-10.4); Platelet Count 173 10x3/uL (130-400); RBC Distribution Width 14.6 % (11.5-14.5); Red Blood Cell (RBC) Count 5.26 mill/uL (4.70-6.10)
[2024-02-14] MEDS ORDERED: methylPREDNISolone Sod Succ/PF 125 MG/2 ML VIAL ONE (07:41)
[2024-02-14] MEDS ORDERED: Ipratropium/Albuterol 3 ML NEB ONE (07:44)
[2024-02-14 07:45] LABS: ALT (SGPT) 61 U/L (8-55); AST (SGOT) 35 U/L (5-34); Albumin 3.6 g/dL (3.4-4.8); Alkaline Phosphatase 65 U/L (40-110); Anion Gap 15 mmol/L (10-20); BUN (Urea Nitrogen) 19 mg/dL (8.4-25.7); Bilirubin, Total 0.7 mg/dL (0.2-1.2); Calc. Creatinine Clearance 0 mL/min (70-130); Calcium 8.8 mg/dL (7.8-10.44); Carbon Dioxide 23 mmol/L (23-31); Chloride 102 mmol/L (98-107); Estimated GFR 76; Globulin 3.4 g/dL (2.4-3.5); Glucose 199 mg/dL (80-115); Potassium 3.9 mmol/L (3.5-5.1); Sodium 136 mmol/L (136-145)
== END 2024-02-14 09:07 | disposition home or self-care (01) ==
LOC: ERS 06:49
DX: R06.2 Wheezing (principal); R05.9 Cough, unspecified; E11.9 Type 2 diabetes mellitus without complications
CPT/HCPCS: 71045; 80053; 85025; 93005; 94640; J2919; 96374; J7620

== ENCOUNTER 2024-02-15 18:26 | Inpatient (IN) | payer MEDICARE, MEDICAID ==
[2024-02-15] MEDS ORDERED: Dexamethasone 10 MG/ML VIAL ONE (19:10)
[2024-02-15] MEDS ORDERED: Ketorolac Tromethamine 30 MG (1 mL) VIAL ONE (19:10)
[2024-02-15] MEDS ORDERED: fentaNYL 50 mcg/mL 1 mL Vial ONE (19:11)
[2024-02-15] MEDS ORDERED: cefTRIAXone (ROCEPHIN) 1 GM VIAL ONE (19:11)
[2024-02-15] MEDS ORDERED: Sodium Chloride 0.9% 100 ML ONE (19:11)
[2024-02-15] MEDS ORDERED: Magnesium 2 GM/50 ML BAG (IN WATER) ONE (19:11)
[2024-02-15 19:43] LABS: #Basophils Less than 0.03 10x3/uL (0.0-0.2); #Eosinophils Less than 0.03 10x3/uL (0.0-0.7); %Basophils 0.2 % (0.0-1.0); %Lymphocytes 15.2 % (21.0-51.0); %Monocytes 7.3 % (0.0-10.0); %Neutrophils 76.2 % (42.0-75.0); Hematocrit 42.8 % (42.0-52.0); Hemoglobin 14.5 g/dL (14.0-18.0); Mean Corpuscular HGB CONC 33.9 g/dL (32.0-36.0); Mean Corpuscular Hemoglobin 31.7 pg (27.0-31.0); Mean Corpuscular Volume 93.4 fL (78.0-98.0); Mean Platelet Volume 11.5 fL (7.4-10.4); Platelet Count 196 10x3/uL (130-400); RBC Distribution Width 14.7 % (11.5-14.5); Red Blood Cell (RBC) Count 4.58 mill/uL (4.70-6.10)
[2024-02-15 20:00] LABS: ALT (SGPT) 63 U/L (8-55); AST (SGOT) 43 U/L (5-34); Albumin 3.8 g/dL (3.4-4.8); Alkaline Phosphatase 67 U/L (40-110); Anion Gap 21 mmol/L (10-20); BUN (Urea Nitrogen) 21 mg/dL (8.4-25.7); Bilirubin, Total 0.5 mg/dL (0.2-1.2); Calc. Creatinine Clearance 0 mL/min (70-130); Calcium 9.4 mg/dL (7.8-10.44); Carbon Dioxide 19 mmol/L (23-31); Chloride 100 mmol/L (98-107); Estimated GFR 67; Globulin 3.7 g/dL (2.4-3.5); Glucose 417 mg/dL (80-115); Potassium 4.9 mmol/L (3.5-5.1); Protein, Total 7.5 g/dL (5.8-8.1); Sodium 135 mmol/L (136-145)
[2024-02-15 20:05] LABS: Troponin I Less than 0.010 ng/mL (< 0.028)
[2024-02-15 21:38] LABS: Actual Bicarbonate (HCO3v) 23.3 mEq/L (22-28); Base Excess -0.2 mEq/L (-2.0 to +3.0); Calcium, Ionized (venous) 1.18 mmol/L (1.16-1.32); Chloride (VBG) 99 mmol/L (98-106); Hematocrit-VBG 44 % (42.0-52.0); Potassium (VBG) 4.72 mmol/L (3.70-5.30); Sodium 138 mmol/L (133-146); pH (venous) 7.442 (7.32-7.43)
[2024-02-15] MEDS ORDERED: LevoFLOXacin 750 mg/D5W 150 ml Premix Bag ONE (22:57)
[2024-02-15 23:05] LABS: Lactic Acid 3.17 mmol/L (0.5-2.2)
[2024-02-15] MEDS ORDERED: Insulin Regular, Human 100 UNIT/ML 10 ML VIAL ONE (23:51)
[2024-02-16] MEDS ORDERED: Ondansetron PF 4 MG/2 ML Vial IVP PRN (00:19)
[2024-02-16 01:05] VITALS: BMI 35.4
[2024-02-16] MEDS ORDERED: Dextrose 50% Abboject 50 ML SYRINGE SLOW IVP PRN (02:01)
[2024-02-16] MEDS ORDERED: Glucagon 1 MG/ML KIT IM PRN (02:01)
[2024-02-16] MEDS ORDERED: Dextrose 5% in Water 1,000 ML IV PRN (02:01)
[2024-02-16] MEDS: Ketorolac Tromethamine 30 MG (1 mL) VIAL IVP PRN (02:04)
[2024-02-16] MEDS: Ipratropium/Albuterol 3 ML NEB NEB SCH (02:25)
[2024-02-16] MEDS ORDERED: Benzonatate 100 MG CAP PO PRN (02:55)
[2024-02-16] MEDS: Insulin Lispro 100 UNIT/ML 10 ML VIAL SC PRN (03:00)
[2024-02-16 03:18] LABS: #Basophils 0.03 10x3/uL (0.0-0.2); #Eosinophils Less than 0.03 10x3/uL (0.0-0.7); %Basophils 0.2 % (0.0-1.0); %Lymphocytes 11.7 % (21.0-51.0); %Monocytes 3.3 % (0.0-10.0); %Neutrophils 83.5 % (42.0-75.0); Hematocrit 44.1 % (42.0-52.0); Mean Corpuscular Hemoglobin 31.9 pg (27.0-31.0); Mean Corpuscular Volume 93.8 fL (78.0-98.0); Mean Platelet Volume 11.1 fL (7.4-10.4); Platelet Count 191 10x3/uL (130-400); RBC Distribution Width 14.6 % (11.5-14.5)
[2024-02-16 03:37] LABS: Lactic Acid 2.83 mmol/L (0.5-2.2)
[2024-02-16 03:40] LABS: Anion Gap 17 mmol/L (10-20); BUN (Urea Nitrogen) 25 mg/dL (8.4-25.7); Calc. Creatinine Clearance 93 mL/min (70-130); Calcium 9.3 mg/dL (7.8-10.44); Carbon Dioxide 20 mmol/L (23-31); Chloride 101 mmol/L (98-107); Estimated GFR 71; Glucose 295 mg/dL (80-115); Potassium 4.5 mmol/L (3.5-5.1); Sodium 133 mmol/L (136-145)
[2024-02-16 04:23] LABS: Albumin 3.8 g/dL (3.4-4.8); Bilirubin, Direct 0.2 mg/dL (0.1-0.3); Bilirubin, Total 0.5 mg/dL (0.2-1.2); Protein, Total 7.3 g/dL (5.8-8.1)
[2024-02-16 04:24] LABS: ALT (SGPT) 61 U/L (8-55); AST (SGOT) 32 U/L (5-34); Alkaline Phosphatase 64 U/L (40-110)
[2024-02-16] MEDS: methylPREDNISolone Sod Succ 40 MG VIAL IVP SCH (05:29)
[2024-02-16] MEDS: guaiFENesin/DM ER PO SCH (08:48)
[2024-02-16] MEDS: HYDROcodone/Acetaminophen 7.5/325 mg Tablet PO PRN (09:04)
[2024-02-16] MEDS: Magnesium Sulfate In Water 4 GM in Premix 1 BAG IVPB SCH (11:15)
[2024-02-16] MEDS ORDERED: Cyclobenzaprine 10 MG TAB PO PRN (13:13)
[2024-02-16] MEDS: guaiFENesin/Codeine 200 mg/20 mg 10 ml Cup PO PRN (17:12)
[2024-02-16] MEDS: Icosapent Ethyl 1 GM CAPSULE PO SCH (21:10)
[2024-02-16] MEDS: LevoFLOXacin 750 mg/D5W 750 MG in Premix 1 BAG IVPB SCH (22:27)
[2024-02-17 05:08] LABS: #Basophils 0.03 10x3/uL (0.0-0.2); #Eosinophils Less than 0.03 10x3/uL (0.0-0.7); %Basophils 0.2 % (0.0-1.0); %Lymphocytes 8.3 % (21.0-51.0); %Neutrophils 81.4 % (42.0-75.0); Hematocrit 44.4 % (42.0-52.0); Hemoglobin 15.2 g/dL (14.0-18.0); Mean Corpuscular HGB CONC 34.2 g/dL (32.0-36.0); Mean Corpuscular Hemoglobin 31.9 pg (27.0-31.0); Mean Corpuscular Volume 93.1 fL (78.0-98.0); Mean Platelet Volume 11.4 fL (7.4-10.4); Platelet Count 176 10x3/uL (130-400); RBC Distribution Width 14.6 % (11.5-14.5); Red Blood Cell (RBC) Count 4.77 mill/uL (4.70-6.10)
[2024-02-17 05:31] LABS: Anion Gap 16 mmol/L (10-20); BUN (Urea Nitrogen) 27 mg/dL (8.4-25.7); Calc. Creatinine Clearance 95 mL/min (70-130); Carbon Dioxide 23 mmol/L (23-31); Chloride 100 mmol/L (98-107); Estimated GFR 73; Glucose 217 mg/dL (80-115); Potassium 4.1 mmol/L (3.5-5.1); Sodium 135 mmol/L (136-145)
[2024-02-17] MEDS: Levothyroxine Sodium 100 MCG TAB PO SCH (06:17)
[2024-02-17] MEDS: Acetaminophen 325 MG TAB PO PRN (06:24)
[2024-02-17] MEDS: Fenofibrate Nanocrystallized 145 MG TAB PO SCH (09:00)
[2024-02-17] MEDS: Anastrozole 1 MG TAB PO SCH (09:00)
[2024-02-17] MEDS: Allopurinol 300 MG TAB PO SCH (09:01)
[2024-02-17] MEDS: Dapagliflozin Propanediol 10 MG TAB PO SCH (09:01)
[2024-02-17] MEDS ORDERED: Ipratropium/Albuterol 3 ML NEB NEB SCH (13:00)
[2024-02-17] MEDS: Ipratropium/Albuterol 3 ML NEB EZPAP SCH (13:48)
[2024-02-17] MEDS: HYDROcodone/Acetaminophen 10/325 mg Tablet PO PRN (18:22)
[2024-02-17] MEDS: Mometasone 200 MCG/Formoterol 5 MCG 120 PUFF INHALER INH SCH (18:52)
[2024-02-17] MEDS: Montelukast Sodium 10 mg Tablet PO SCH (20:18)
[2024-02-17] MEDS: Insulin Lispro 100 UNIT/ML 10 ML VIAL SC PRN (22:05)
[2024-02-18 04:57] LABS: #Basophils Less than 0.03 10x3/uL (0.0-0.2); #Eosinophils Less than 0.03 10x3/uL (0.0-0.7); %Basophils 0.2 % (0.0-1.0); %Lymphocytes 9.3 % (21.0-51.0); %Monocytes 8.2 % (0.0-10.0); %Neutrophils 80.9 % (42.0-75.0); Hematocrit 44.6 % (42.0-52.0); Hemoglobin 15.2 g/dL (14.0-18.0); Mean Corpuscular HGB CONC 34.1 g/dL (32.0-36.0); Mean Corpuscular Hemoglobin 31.8 pg (27.0-31.0); Mean Corpuscular Volume 93.3 fL (78.0-98.0); Mean Platelet Volume 11.3 fL (7.4-10.4); Platelet Count 181 10x3/uL (130-400); RBC Distribution Width 14.7 % (11.5-14.5); Red Blood Cell (RBC) Count 4.78 mill/uL (4.70-6.10)
[2024-02-18 05:32] LABS: Anion Gap 18 mmol/L (10-20); BUN (Urea Nitrogen) 31 mg/dL (8.4-25.7); Calc. Creatinine Clearance 93 mL/min (70-130); Calcium 9.2 mg/dL (7.8-10.44); Carbon Dioxide 19 mmol/L (23-31); Chloride 100 mmol/L (98-107); Estimated GFR 72; Glucose 208 mg/dL (80-115); Potassium 4.9 mmol/L (3.5-5.1); Sodium 132 mmol/L (136-145)
[2024-02-18] MEDS: SEMAGLUTIDE 4 MG/3 ML SC SCH (08:17)
[2024-02-19] MEDS: Ipratropium/Albuterol 3 ML NEB ONE (22:32)
[2024-02-20 16:28] VITALS: BP 157/93; TEMP 97.8
== END 2024-02-20 17:50 | disposition home or self-care (01) | DRG 202 ==
LOC: ERS 18:26 → SURG B 23:36 → OBSVTOIN 02-17 09:33
PROVIDERS: ADMIT Internal Medicine; ATTEND Internal Medicine
DX: J45.909 Unspecified asthma, uncomplicated (principal); E87.20 Acidosis, unspecified; J44.1 Chronic obstructive pulmonary disease with (acute) exacerbation; E78.5 Hyperlipidemia, unspecified; M10.9 Gout, unspecified; S62.317A Displaced fracture of base of fifth metacarpal bone, left hand, initial encounter for closed fracture; W01.0XXA Fall on same level from slipping, tripping and stumbling without subsequent striking against object, initial encounter; E11.65 Type 2 diabetes mellitus with hyperglycemia; Z90.49 Acquired absence of other specified parts of digestive tract; Y93.89 Activity, other specified; Y92.89 Other specified places as the place of occurrence of the external cause; E03.9 Hypothyroidism, unspecified
CPT/HCPCS: 29125; 36415; 36416; 70450; 71045; 71275; 72125; 80048; 80053; 80076; 82010; 82805; 83605; 83880; 84484; 85025; 87040; 87428; 93005; 94640; 96365; 96366; 96367; 96374; 96375; J0696; J1100; J1815; J1885; J1956; J2919; J3010; J3475; J7620; Q9967